=== PATIENT | male | born 1955 | race Caucasian/White ===

== ENCOUNTER 2024-03-08 19:50 | Emergency (ER) | payer OTHER, SELFPAY ==
--- NOTE | ~2024-03-08 | XR_ITS ---
XR chest 1V portable Ordering provider: Bryan Wynne MD History: 68 years Male with . weakness . Comparison: July 04 2018 FINDINGS: MEDIASTINUM: The cardiac silhouette is not enlarged. 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 Stent graft is seen in the aortic arch and descending aorta. Postoperative changes in the mediasti num. LUNGS: No effusions or pneumothorax. Bilateral interstitial changes more on the left side suggestive of pulmonary edema versus pneumonitis . Clinical correlation advised. OTHER: No free air under the diaphragm. 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 CT evaluation advised. Stent graft in the aortic arch and descending aorta. Bilateral interstitial changes suggestive of pneumonitis versus edema. Reviewed, dictated and finalized at location A. ONNEL MANAGER
--- NOTE | ~2024-03-08 | CT_ITS ---
EXAMINATION: CTA chest DATE: 03/09/2024 02:52 INDICATION: Aortic aneurysm. TECHNIQUE: Computed tomographic angiography (CTA) of the chest was performed with 100 mL Omnipaque-35 0 intravenous contrast. Automated exposure control and iterative reconstruction technique were employ ed. The dose-length product was 319.02 mGy-cm. Maximum intensity projection 3D-reconstructions of the aorta and other arteries were constructed by the technologist on a separate workstation. COMPARISON: Chest CT 06/13/2016, chest single view 05/10/2023 FINDINGS: There is mild emphysema. There is septal thickening in the lungs bilaterally. There are cabrera undglass opacities in the lower lobes. No pleural effusion. Cardiomegaly is noted. There are coronary artery calcifications. No pericardial effusion. There are surgical changes of ascending aorta. There is irregularity of the wall of the ascending aorta with 10 mm contrast outpouching. 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 There is a dissection of descen ding thoracic aorta and abdominal aorta with stent graft. 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 There are endoleaks of the aorta at the level of the diaphragm and in the abdominal aorta with contrast opacification of the celiac axis and false lumen of the superior mesenteric artery. There is a 3.3 cm cyst in left kidney. Calcifications in the spleen are consistent with old granulomatous disease. There are gallstones in the gallbladder, which is normal in size. There is bilateral gynecomastia. There is no pulmonary embolus. There is severe c ervical and thoracic spondylosis. IMPRESSION: 1. Diffuse lung disease, likely mild pulmonary edema superimposed on mild emphysema. 2. Surgical changes of the ascending aorta. A 10 mm outpouching of contrast of the ascending aorta ma y be a pseudoaneurysm at an aortotomy site or part of an otherwise thrombosed graft. 3. 8.0 cm dissecting aneurysm of descending thoracic aorta and abdominal aorta with stent graft with endoleaks at the level of the diaphragm and in the abdominal aorta. Given that the celiac axis arises from the false lumen and that the dissection extends into the superior mesenteric artery, it is not clear if these endoleaks are intentional fenestrations. Reviewed, dictated and finalized at location A. AGE GARAGE MANAGER IMPRESSION: 1. Diffuse lung disease, likely mild pulmonary edema superimposed on mild emphy sema. 2. Surgical changes of the ascending aorta. A 10 mm outpouching of contrast of the ascending aorta may be a pseudoaneurysm at an aortotomy site or part of an otherwise thrombosed graft. 3. 8.0 cm dissecting aneurysm of descending thoracic aorta and abdominal aorta with stent graft with endoleaks at the level of the diaphragm and in the abdomi nal aorta. Given that the celiac axis arises from the false lumen and that the dissection extends into the superior mesenteric artery, it is not clear if thes e endoleaks are intentional fenestrations.
--- NOTE | ~2024-03-08 | CT_ITS ---
EXAMINATION: CT brain wo con DATE: 03/09/2024 01:06 INDICATION: Unsteady gait. TECHNIQUE: Computed tomography (CT) of the head was performed without intravenous contrast. The mA wa s adjusted according to patient size. Iterative reconstruction technique was employed. The dose-lengt h product was 681.00 mGy-cm. COMPARISON: None FINDINGS: There is chronic encephalomalacia in the frontal lobes, left worse than right. There are sc attered areas of low attenuation in the cerebral white matter. There is an old infarct in the right t halamus. There is an old infarct in the right cerebellum. There is chronic encephalomalacia in the an teroinferior temporal lobes. There is no intracranial hemorrhage, acute infarction, or abnormal intra cranial mass lesion. There is enlargement of the ventricles. There is mild mucosal thickening in the paranasal sinuses. The mastoid air cells are normal. IMPRESSION: 1. Chronic encephalomalacia involving the frontal and temporal lobes in a distribution typical of tra umatic brain injury. 2. 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 3. Extensive nonspecific cerebral white matter disease, which likely represents chronic small vessel ischemic disease. 4. Enlargement of the ventricles out of proportion to the size of the sulci. Correlate clinically for normal pressure hydrocephalus. Reviewed, dictated and finalized at location A. EMS TECHNICIAN IMPRESSION: 1. Chronic encephalomalacia involving the frontal and temporal lobes in a distr ibution typical of traumatic brain injury. 2. 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 3. Extensive nonspecific cerebral white matter disease, which likely represents chronic small vessel ischemic disease. 4. Enlargement of the ventricles out of proportion to the size of the sulci. Co rrelate clinically for normal pressure hydrocephalus.
[2024-03-08 19:52] VITALS: BP 173/113; PULSE 109; RESP 20; TEMP 36.3; O2SAT 100
[2024-03-08 22:16] VITALS: BP 198/124; PULSE 76; RESP 16; TEMP 36.1; O2SAT 99
[2024-03-08 23:51] VITALS: BP 166/113; PULSE 90; RESP 17; O2SAT 99
[2024-03-08 23:52] VITALS: BP 166/113; PULSE 82; RESP 18; O2SAT 97
[2024-03-09] VITALS (9 sets, daily range): BP systolic 152–184; BP diastolic 93–119; PULSE 67–84; RESP 11–20; O2SAT 95–100
--- NOTE | 2024-03-09 | ECG_ITS ---
Test Date: 2024-03-09 00:20:05 Measurements Intervals Malin Rate: 97 P: 79 VT: 178 QRS: -7 QRSD: 94 T: 66 QT: 360 QTc: 458 Interpretive Statements SINUS RHYTHM WITH FREQUENT SUPRAVENTRICULAR PREMATURE COMPLEXES POSSIBLE LEFT ATRIAL ENLARGEMENT [-0.1mV P WAVE IN V1/V2] ANTEROSEPTAL MYOCARDIAL INFARCTION , OF INDETERMINATE AGE [40+ ms Q WAVE IN V1-V4] No previous ECG available for comparison Electronically Signed On 03-09-2024 14:45:12 MECHANIC CHIEF by Julian Lowe M.D.
[2024-03-09] MEDS: METOPROLOL TARTRATE 50 MG TAB 25 MG PO (00:18)
[2024-03-09 00:25] LABS: Basophils Absolute Auto 0.1 K/mm3 (0.0-0.1); Eosinophils Absolute Auto 0.1 K/mm3 (0-0.3); Eosinophils Percent Auto 1.9 % (0-4.4); Hematocrit 39.9 % (42.0-52.0); Hemoglobin 13.1 g/dL (14.0-18.0); Immature Granulocyte Absolute 0.01 K/mm3 (0.00-0.031); Immature Granulocyte Percent A 0.1 % (0-0.5); Lymphocytes Percent Auto 39.9 % (18.3-44.2); Mean Corpuscular HGB Conc 32.8 g/dl (32-36); Mean Corpuscular Hemoglobin 31.4 pg (26-34); Mean Corpuscular Volume 95.7 fl (80-100); Mean Platelet Volume 9.2 fl (7.4-10.4); Monocytes Absolute Auto 0.8 K/mm3 (0.1-0.6); Monocytes Percent Auto 11.5 % (2.6-8.5); Neutrophils Absolute Auto 3.2 K/mm3 (1.3-6.7); Neutrophils Percent Auto 45.6 % (45.5-73.1); Platelet Count Result 165 k/mm3 (150-375); Red Blood Count 4.17 M/mm3 (4.6-6.20); Red Cell Distribution Width 13.7 % (11.5-14.5)
[2024-03-09 00:34] LABS: Alanine Aminotransferase 18 U/L (6-50); Albumin Level 3.8 g/dL (3.5-5.1); Alkaline Phosphatase 129 U/L (38-126); Anion Gap 3 mmol/L (4-12); Aspartate Amino Transferase 39 U/L (17-59); Bilirubin,Total 0.9 mg/dL (0.2-1.3); Blood Urea Nitrogen 19 mg/dL (9-20); Carbon Dioxide 28 mmol/L (22-30); Chloride 105 mmol/L (98-107); Estimated CRCL calculation 82 ml/min; Estimated Glomerular Filt Rate > 60; Glucose 105 mg/dL (65-110); Potassium 3.9 mmol/L (3.4-5.0); Sodium 136 mmol/L (137-145)
[2024-03-09 00:46] LABS: Troponin I < 0.012 ng/mL (0.000-0.034)
--- NOTE | 2024-03-09 02:20 | PC.NURSE ---
Pt family member states pt was doubling up on his metoprolol and sometimes doing even more than doubling his doses and went through a 90 day supply in around 1 month
[2024-03-09 02:29] LABS: Add Urine Microscopic? YES; Appearance Urine Clear (Clear); Bacteria Urine None Seen /hpf; Bilirubin Urine Negative (Negative); Blood Urine Trace (Negative); Color Urine Yellow (Yellow); Glucose Urine UA Negative (Negative); Ketones Urine Negative (Negative); Leukocyte Esterase Ur Negative LEU/UL (Negative); Nitrate Urine Negative (Negative); Non Pathogenic Casts 0-2; Protein Urine Negative (Negative); RBC Urine 0-2 /hpf (0-2); Specific Grav Ur 1.021 (1.001-1.035); Squamous Epithelial Cell Urine None Seen /hpf (Few); WBC Urine 0-5 /hpf (0-3); pH Urine 5.5 (5.0-9.0)
--- NOTE | 2024-03-09 04:37 | ED_ITS ---
HPI - General Adult General Chief complaint: Recheck/Abnormal Lab/Rx Stated complaint: HTN, lightheaded, dizzy Time Seen by Provider: 03/08/24 23:51 History of Present Illness HPI narrative: Patient is a 68-year-old gentleman who presents emergency department with chief complaint of high blood pressure and feeling off balance. Patient reports that he has been out of his metoprolol for the last several days reports that he notices blood pressures been running high patient denies chest pain denies shortness of breath Related Data Allergies Allergy/AdvReac Type Severity Reaction Status Date / Time No Known Drug Allergies Allergy Unknown Unknown Verified 03/08/24 19:51 Review of Systems Review of Systems: A 10 system review of systems was completed on the patient and is negative except for what is stated in the HPI. Nursing and ancillary documentation was reviewed. [facility] Past Medical History Medical History Aortic arch aneurysm CAD (coronary artery disease) COPD (chronic obstructive pulmonary disease) Hypertension Surgical History Surgical History S/P aortic aneurysm repair Family History Family History Mother Non-Hodgkin lymphoma Social History Social History Social History: in younger years smoked a pack a day. Smoking packs per day: 0.25 Smoking cigarettes per day: 5.0 Years smoked: 42 Smoking pack-years: 10.50 Smoking status: Former smoker Alcohol intake: current Drinks per week: 2 Alcohol use details: beer Substance use: never Exam Narrative: GENERAL: Well-appearing, well-nourished, and in no acute distress. HEAD: Normocephalic, atraumatic. EYES: PERRLA and EOMI. ENT: Nares clear, no rhinorrhea or epistaxis. Mucous membranes moist. NECK: Supple. CHEST: Clear to auscultation. No respiratory distress. HEART: Regular rate and rhythm. No murmur heard. Normal peripheral pulses. ABDOMEN: Soft, nontender, nondistended, normal active bowel sounds. EXTREMITIES: Normal range of motion. No edema. SKIN: Warm, dry, no rash. NEURO: No focal deficits. Alert and oriented x3. PSYCH: Normal mood and affect. Course Vital Signs Vital signs: Vital Signs Temperature 36.3 C L 03/08/24 19:52 Pulse Rate 109 H 03/08/24 19:52 Respiratory Rate 20 03/08/24 19:52 Blood Pressure 173/113 H 03/08/24 19:52 Pulse Oximetry 100 03/08/24 19:52 Oxygen Delivery Room Air 03/08/24 19:52 Temperature 36.1 C L 03/08/24 22:16 Pulse Rate 72 03/09/24 04:46 Respiratory Rate 19 03/09/24 04:46 Blood Pressure 152/96 H 03/09/24 04:46 Pulse Oximetry 97 03/09/24 04:16 Oxygen Delivery Room Air 03/08/24 19:52 Medical Decision Making MDM Narrative Medical decision making narrative: Differential diagnosis includes hypertension, hypertensive urgency, intracranial hemorrhage, thoracic aortic aneurysm Laboratory studies were obtained that showed normal CBC normal CMP troponin was negative Chest x-ray showed a widened mediastinum concerning for aneurysm CT head showed no acute abnormality CTA of the chest showed some enlargement of the aneurysm. The case was discussed with both thoracic and vascular. The images were reviewed and vascular given that he is not having chest pain or abdominal pain feels as though the patient can follow-up as an outpatient. The case was discussed with doctors Sean and Mirna The patient will be ambulated and given a refill for his metoprolol Vital Signs Vital Signs: Vital Signs Temperature 36.3 C L 03/08/24 19:52 Pulse Rate 109 H 03/08/24 19:52 Respiratory Rate 20 03/08/24 19:52 Blood Pressure 173/113 H 03/08/24 19:52 Pulse Oximetry 100 03/08/24 19:52 Oxygen Delivery Room Air 03/08/24 19:52 Temperature 36.1 C L 03/08/24 22:16 Pulse Rate 72 03/09/24 04:46 Respiratory Rate 19 03/09/24 04:46 Blood Pressure 152/96 H 03/09/24 04:46 Pulse Oximetry 97 03/09/24 04:16 Oxygen Delivery Room Air 03/08/24 19:52 Lab Data 03/09/24 00:19 03/09/24 00:19 Labs: Lab Results 03/09/24 03/09/24 Range/Units 00:19 02:21 WBC 7.0 (4.5-10.0) K/mm3 RBC 4.17 L (4.6-6.20) M/mm3 Hgb 13.1 L (14.0-18.0) g/dL Hct 39.9 L (42.0-52.0) % MCV 95.7 (80-100) fl MCH 31.4 (26-34) pg MCHC 32.8 (32-36) g/dl RDW 13.7 (11.5-14.5) % Plt Count 165 (150-375) k/mm3 MPV 9.2 (7.4-10.4) fl Immature Gran % (Auto) 0.1 (0-0.5) % Neut % (Auto) 45.6 (45.5-73.1) % Lymph % (Auto) 39.9 (18.3-44.2) % [place] % (Auto) 11.5 H (2.6-8.5) % Eos % (Auto) 1.9 (0-4.4) % Baso % (Auto) 1.0 (0.2-1.2) % Lymph # (Auto) 2.80 (0.9-3.2) K/mm3 [place] # (Auto) 0.8 H (0.1-0.6) K/mm3 Eos # (Auto) 0.1 (0-0.3) K/mm3 Baso # (Auto) 0.1 (0.0-0.1) K/mm3 Abs Immat Gran (auto) 0.01 (0.00-0.031) K/mm3 Absolute Neuts (auto) 3.2 (1.3-6.7) K/mm3 Absolute Nucleated RBC 0.000 (0.0-0.012) K/mm3 Nucleated RBC % 0.0 (0.0-0.2) % Sodium 136 L (137-145) mmol/L Potassium 3.9 (3.4-5.0) mmol/L Chloride 105 (98-107) mmol/L Carbon Dioxide 28 (22-30) mmol/L Anion Gap 3 L (4-12) mmol/L BUN 19 (9-20) mg/dL Creatinine 0.90 (0.7-1.3) mg/dL Estim Creat Clear Calc 82 ml/min Estimated GFR > 60 (59 - ) Glucose 105 (65-110) mg/dL Calcium 9.0 (8.4-10.2) mg/dL Total Bilirubin 0.9 (0.2-1.3) mg/dL AST 39 (17-59) U/L ALT 18 (6-50) U/L Alkaline Phosphatase 129 H (38-126) U/L Troponin I < 0.012 (0.000-0.034) ng/mL Total Protein 8.0 (6.3-8.2) g/dL Albumin 3.8 (3.5-5.1) g/dL Urine Color Yellow (Yellow) Urine Appearance Clear (Clear) Urine pH 5.5 (5.0-9.0) Ur Specific [place] 1.021 (1.001-1.035) Urine Protein Negative (Negative) mg/dL Urine Glucose (UA) Negative (Negative) mg/dL Urine Ketones Negative (Negative) mg/dL Ur Blood (Man) Trace (Negative) Urine Nitrate Negative (Negative) Urine Bilirubin Negative (Negative) Urine Urobilinogen 1.0 (<2.0) mg/dL Leukocyte Esterase Rfl Negative (Negative) EDDIE/UL Urine RBC 0-2 (0-2) /hpf Urine WBC 0-5 (0-3) /hpf Ur Squamous Epith Cells None seen (Few) /hpf Urine Bacteria None seen /hpf Urine Casts 0-2 Discharge Plan Discharge Clinical Impression: Hypertension, Aneurysm, thoracic aortic Patient Disposition: Home, Self-Care Condition: Stable Instructions: Antibiotic Form, Hypertension (ED) Additional Instructions: Please follow-up with your vascular surgeon. If you develop severe chest pain severe abdominal pain and is recommended that he seek immediate evaluation. Prescriptions: New metoprolol tartrate 25 mg tablet 25 mg PO BID Qty: 60 0RF No Action metoprolol tartrate 50 mg tablet 50 mg PO DAILY Qty: 30 0RF Rx Instructions: Pt needs appt prior to more refills. Follow-up/Referrals: Destin George MD [Primary Care Provider] - Time of Disposition: 06:28
--- NOTE | 2024-03-09 07:08 | PC.NURSE ---
Pt roadtested. Pt ambulated with steady gait but said he felt a bit weak, however pt says he feels like he is safe to leave.
== END 2024-03-09 07:23 | disposition home or self-care (01) ==
PROVIDERS: Emergency Provider Emergency Medicine; PCP Family Medicine Adolescent Medicine
DX: I10 Essential (primary) hypertension (principal); I71.20 Thoracic aortic aneurysm, without rupture, unspecified; I25.10 Atherosclerotic heart disease of native coronary artery without angina pectoris; J44.9 Chronic obstructive pulmonary disease, unspecified; Z87.891 Personal history of nicotine dependence
CPT/HCPCS: 36415; 70450; 71045; 71275; 80053; 81001; 84484; 85025; 93005; 99284; A9270; Q9967

== ENCOUNTER 2024-06-10 15:43 | Outpatient (CLI) | payer OTHER, SELFPAY ==
[2024-06-10 16:27] LABS: Basophils Absolute Auto 0.1 K/mm3 (0.0-0.1); Basophils Percent Auto 1.2 % (0.2-1.2); Eosinophils Percent Auto 0.6 % (0-4.4); Hematocrit 43.4 % (42.0-52.0); Hemoglobin 14.2 g/dL (14.0-18.0); Immature Granulocyte Absolute 0.01 K/mm3 (0.00-0.031); Immature Granulocyte Percent A 0.1 % (0-0.5); Immature Platelet Fraction Pct 3.3 % (0.9-11.2); Lymphocytes Absolute Auto 2.49 K/mm3 (0.9-3.2); Lymphocytes Percent Auto 36.3 % (18.3-44.2); Mean Corpuscular HGB Conc 32.7 g/dl (32-36); Mean Corpuscular Hemoglobin 31.5 pg (26-34); Mean Corpuscular Volume 96.2 fl (80-100); Mean Platelet Volume 9.4 fl (7.4-10.4); Monocytes Absolute Auto 0.7 K/mm3 (0.1-0.6); Monocytes Percent Auto 10.3 % (2.6-8.5); Neutrophils Absolute Auto 3.5 K/mm3 (1.3-6.7); Neutrophils Percent Auto 51.5 % (45.5-73.1); Platelet Count Result 123 k/mm3 (150-375); Red Blood Count 4.51 M/mm3 (4.6-6.20); Red Cell Distribution Width 14.2 % (11.5-14.5); White Blood Count 6.9 K/mm3 (4.5-10.0)
--- OUTSIDE RECORDS SUMMARY | 2024-06-10 18:22 | XMS_ITS | Data Portability ---
Author Organization [facility] [address] [place] [id number] Care Team Providers Care Clerk Analyst Name Role Phone RIAN BANKS Primary Care Provider [phone] Assessment Encounter Date Assessment Date Assessment LastModified by Organization Details LastModified Time 03/11/2024 03/11/2024 Blood pressure is not controlled continue with the metoprolol add nifedipine ER 30 mg daily. Obtain ER record. also obtain records from his previous primary care healthy lifestyle care instructions follow up 2 weeks. [email or web address] Not available 04/12/2024 21:30:04 Plan of Treatment Reminders Order Date Submit Date Provider Last Modified By Organization Details Last Modified Time Details Appointments ANY 15 2024 02:15P Rani Banks MD Not available Not available Not available ANY 15 2024 01:15P Rani Banks MD Not available Not available Not available Lab None recorded. Referral None recorded. Procedures None recorded. Surgeries None recorded. Imaging None recorded. Medication Orders nifedipin e ER 30 mg tablet,ex tended release 2023 024 [email or web address] [id number] [address], [place], [id number], 03/11/2024 14:55:00 Patient TargetsNo targets recorded. Patient Instructions Encounter Date Encounter Id Patient Instructions Last Modified By Organization Details Last Modified Time 03/11/2024 [id number] A healthy lifestyle: care instructions Not available 03/11/2024 14:55:00 Reason for Referral None Reported. Problems Name Problem SNOMED Code Status Onset Date Resolution Date Notes Provider Name and Address Organization Details Recorded Time Essential hypertension 85383443 Active 2023 LULI Lee, [facility] 4 12:23:08 Problem Notes None recorded. Procedures Surgical History Date Name Laterality Status Provider Name and Address Organization Details Recorded Time 06/15/19 17 aneurysmectomy of aortic arch with anastomosis completed Hellen Miller [facility] 03/11/2024 10:30:17 Imaging Results None recorded. Procedure Notes None recorded. Medical Equipment None Reported. Allergies Allergen ID Allergen Name Allergen Category Reaction Reaction Severity Criticality Documentation Date Start Date Code Code System Note Provider Name and Address Organization Details Recorded Time 497972 chlorthal idone medicatio n other Not available low 06/10/20242018 2409 RxNorm Hypon atrem ia when in traum a hospi dayne Not Available Not Available Not Available Medications Name Sig Start Date Stop Date Status Note LastModified by Organization Details LastModified Time nifedipine ER 30 mg tablet,exten ded release Take 1 tablet every day by oral route. active Not Available Not Available No t Available metoprolol tartrate 25 mg tablet Take 1 tablet twice a day by oral route. 025 active Not Available Not Available Not Avai lable Vitals Date Recorded Body height Body mass index (BMI) Body weight Heart rate Oxygen saturation Oxygen saturation in Arterial blood by Pulse oximetry Systolic blood pressure Diastolic blood pressure Provider Name and Address Organization Details Last Updated DateTime 4 187.96 cm 25.4 kg/m2 31327.8 5 g 75 /min 97 % 97 % 165 mm[Hg] 100 mm[Hg] Hellen Miller [facility] 4 10:27:11 Date Recorded Heart rate Oxygen saturation Oxygen saturation in Arterial blood by Pulse oximetry Systolic blood pressure Diastolic blood pressure Provider Name and Address Organization Details Last Updated DateTime 4 59 /min 95 % 95 % 164 mm[Hg] 106 mm[Hg] Giuliana Sarabia MA [facility] 4 12:07:18 Date Recorded Body height Body mass index (BMI) Body weight Heart rate Oxygen saturation Oxygen saturation in Arterial blood by Pulse oximetry Systolic blood pressure Diastolic blood pressure Provider Name and Address Organization Details Last Updated DateTime 5 187.96 cm 24.4 kg/m2 35848.5 5 g 76 /min 96 % 96 % 112 mm[Hg] 70 mm[Hg] Hellen Miller, [facility] 15:05:31 Social History Question Answer Notes LastModified by Organizat ion Details LastModified Time Tobacco Smoking Status Current Every Day Smoker Hellensnow Miller MA null, [place] - [email or web address] 03/11/2024 10:28:25 Do You Have An Advance Directive? No Information n ot available 03/11/2024 Are You Blind Or Do You Have Difficulty Seeing? No Information n ot available 03/11/2024 In The 14 Days Before Symptom Onset, Have You Had Close Contact With A Laboratory-confirm ed COVID-19 While That Case Was Ill? No Information n ot available 03/11/2024 In The 14 Days Before Symptom Onset, Have You Had Close Contact With A Person Who Is Under Investigation For COVID-19 While That Person Was Ill? No Information not available 03/11/2024 Have You Been To An Area Known To Be High Risk For COVID-19? No Information not available 03/11/2024 Are You Deaf Or Do You Have Serious Difficulty Hearing? No Information not available 03/11/2024 What Type Of Diet Are You Following? REGULAR Information n ot available 03/11/2024 Are There Any Guns Present In Your Home? No Information not available 03/11/2024 What Was The Date Of Your Most Recent Tobacco Screening? 06/10/2024 Information not available 06/10/2024 What Is Your Current Pack Years? 10-19packyea rs Information not available 03/11/2024 Do You Use Your Seat Belt Or Car Seat Routinely? Yes Information not available 03/11/2024 Do You Have Smoke And Carbon Monoxide Detectors In Your Home? Yes Information not available 03/11/2024 How Much Tobacco Do You Smoke? 0.5 PPD Information not available 03/11/2024 Do You Use Any Illicit Or Recreational Drugs? No Information not available 03/11/2024 Do You Use Sunscreen Routinely? No Information not available 03/11/2024 Has Tobacco Cessation Counseling Been Provided? Yes Information not available 03/11/2024 On What Date Was Tobacco Cessation Counseling Provided? 06/10/2024 Information not available 06/10/2024 Do You Or Have You Ever Used Any Other Forms Of Tobacco Or Nicotine? No Information not available 03/11/2024 Sex: Unknown Functional Status Question Answer Note LastModified by Organization D etails LastModified Time Are you able to care for yourself? Yes Information n ot available 03/11/2024 Mental Status None recorded. Family History Nothing Reported. Medical History Condition Response High Blood Pressure Y Heart Failure Y Immunizations Vaccine Type Date Status Note Provider Miguel e and Address Organization Details Recorded Time Influenza, high-dose, quadrivalent, PF 12/13/2022 completed LULI Boyle, [place] - [facility] 06/10/2024 12:59:25 COVID-19 vaccine, vector-nr, rS-Ad26, PF, 0.5 mL 07/11/2020 completed LULI Boyle, [place] - [facility] 06/10/2024 12:59:25 Influenza, split virus, trivalent, PF 03/19/2014 completed LULI Boyle, [place] - [facility] 06/10/2024 12:59:25 Influenza, split virus, quadrivalent, PF 12/27/2017 completed LULI Boyle, [place] - [facility] 06/10/2024 12:59:25 Tdap 06/10/2024 completed LULI Lee, [place] - [facility] 06/10/2024 16:09:18 Past Encounters Encounter ID Performer Location Encounter Start Date Encounter Closed Date Diagnosis/Indication Diagnosis SNOMED-CT Code Diagnosis ICD10 Code Diagnosis Note [id number] Rian Banks MD [facility] [employer] [address] [place] [id number] 03/11/2024 10:16:01 03/11/2024 12:20:02 Body mass index 25-29 - overweight 134600616 Z68.25 Overweight 046727113 E66 .3 Essential hypertension 11912917 I10 Aneurysm o f aortic arch 448273666 I71.22 Coronary atherosclerosis 631536088 I25.10 Chronic ob structive pulmonary disease 76745406 J44.9 Cyst of kidney 351441556 N28.1 [id number] Lalita Villarreal MA [facility] [employer] [address] [place] [address] 06/10/2024 14:50:40 06/10/2024 16:07:51 Body mass index 20-24 - normal 527953085 Z68.24 Overweight 388141482 E66 .3 Administra tion of diphtheria, pertussis, and tetanus vaccine 069155596 Z23 Essential hypertension 42855176 I10 Screening for malignant neoplasm of colon 952432124 Z12.11 Health Concerns Section Related Observation LastModified by Organization Detai ls LastModified Time None Recorded Concern Status LastModified by Organization Details LastModified Time None Recorded Advance Directives Directive N: Payers Encounter Date Sequence Insurance Name Policy Number Policy Ramirez Covered Member ID Ramirez Member ID Guarantor Name 03/11/2024 1 [employer] - DUAL ELIGIBLE - GOLD PLUS INTE[employer]ATED (MEDICARE - HMO) Stephen Garrett [id number] Stephen Garrett Notes Date Note Type Note Provider Name and Address Organization Details Recorded Time 03/11/2024 text/html patient to establish care he was in the emergency room recently in [facility] because of elevated blood pressure apparently the patient has a history of hypertension had run out of his metoprolol for a week or so prior he also has a history of the aortic arch aneurysm that has been repaired what sounds like possibly a distal aneurysm in his aorta that has been repaired CAD COPD hypertension a kidney cyst. Medications metoprolol allergies none surgeries he has had aneurysm repair family history mother non-Hodgkin's lymphoma. Father had mesothelioma. Single half a pack a day smoker no drugs . alcohol moderate alcohol. He is not sure about colonoscopy or Cologuard had a flu shot unsure of COVID shingles or pneumonia Rian Banks MD Attn: Accounting,[address] [facility], [place], [address], [facility] 04/12/2024 21:30:33
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
--- OUTSIDE RECORDS SUMMARY | 2024-06-10 18:23 | XMS_ITS | CONTINUITY OF CARE DOCUMENT ---
Author Name rowan donahue Address Unknown Organization [facility] Address [id number] [place] [address] [address] [place] [address] Phone [phone] Care Team Providers Care Furniture Associate Name Role Phone Nick Ni MD Unavailable [phone] OLIVIA HERNANDEZ DO Unavailable [phone] INSURANCE PROVIDERS Payer name Policy type / Coverage type [place] red republican ID [facility] Medicaid [id number]
--- OUTSIDE RECORDS SUMMARY | 2024-06-10 18:23 | XMS_ITS | Patient Health Summary ---
Author Organization [facility] Address [address] [place] [address] Care Team Providers Care Biodiesel Production Associate Name Role Phone Unavailable Primary Care Provider Unavailabl e Note from [facility],non-owned Affiliates and Associated Physician Practices is amultiple site organization consisting of ambulatory clinics and hospital sitesin [place], [place]. This disclosure is being madepursuant to the Care Everywhere program and may not contain all information available regarding this patient. Last updated 17.[facility] Allergies No known active allergies Medications * Be aware that medications may not be up to date on this document. Alwaysverify current medications with the patient. * atorvastatin (LIPITOR) 40 MG tablet(Started 12/26/2017) Take 40 mg by mouth * carvedilol (COREG) 25 MG tablet(Started 12/26/2017) Take 25 mg by mouth * famotidine (PEPCID) 20 MG tablet(Started 07/12/2016) Take 20 mg by mouth * folic acid (FOLVITE) 1 MG tablet(Started 07/12/2016) Take 1 mg by mouth * oxyCODONE, immediate release, (ROXICODONE) 5 MG tablet(Started 04/06/2018) Take 1 tablet by mouth every 6 hours as needed * docusate sodium (COLACE) 100 MG capsule(Started 04/07/2018) Take 1 capsule by mouth once daily * senna 17.2 MG(Started 04/07/2018) Take 17.2 mg by mouth once daily Active Problems Problem Noted Date Diagnosed Date [...] CDT Respiratory Rate 17 04/06/2018 12:47 PM [employer]PERINTENDENT [employer]AL Oxygen Saturation 96% 04/06/2018 12:47 PM [employer] Inhaled Oxygen Concentration - - Weight 100.2 kg (221 lb) 06/14/2018 1:04 PM CDT Height 190.5 cm (6' 3 ) 06/14/2018 1:04 PM CDT Body Mass Index 27.62 06/14/2018 1:04 PM CDT Procedures * CT ANGIO BRAIN(Performed 06/14/2018) Performed for SDH (subdural hematoma) (HCC) * CREATININE BLOOD - POCT (IP) [facility](Performed 06/14/2018) Performed for SDH (subdural hematoma) (HCC) * CARDIAC EKG ORDER(Performed 05/05/2018) * LAB RESULTS ORDER(Performed 04/18/2018) * APHERESIS/TRANSFUSION ORDER(Performed 04/13/2018) * CARDIAC PROCEDURE ORDER(Performed 04/09/2018) * BASIC METABOLIC PANEL (CALCIUM TOTAL)(Performed 04/05/2018) * PHOSPHORUS BLOOD(Performed 04/05/2018) * MAGNESIUM BLOOD(Performed 04/05/2018) * CBC W AUTO DIFFERENTIAL(Performed 04/05/2018) * BASIC METABOLIC PANEL (CALCIUM TOTAL)(Performed 04/05/2018) * PHOSPHORUS BLOOD(Performed 04/05/2018) * MAGNESIUM BLOOD(Performed 04/05/2018) * CBC W AUTO DIFFERENTIAL(Performed 04/05/2018) * BASIC METABOLIC PANEL (CALCIUM TOTAL)(Performed 04/04/2018) * BASIC METABOLIC PANEL (CALCIUM TOTAL)(Performed 04/04/2018) * BASIC METABOLIC PANEL (CALCIUM TOTAL)(Performed 04/03/2018) * PHOSPHORUS BLOOD(Performed 04/03/2018) * MAGNESIUM BLOOD(Performed 04/03/2018) * CBC W AUTO DIFFERENTIAL(Performed 04/03/2018) * BASIC METABOLIC PANEL (CALCIUM TOTAL)(Performed 04/03/2018) * BASIC METABOLIC PANEL (CALCIUM TOTAL)(Performed 04/03/2018) * BASIC METABOLIC PANEL (CALCIUM TOTAL)(Performed 04/03/2018) * BASIC METABOLIC PANEL (CALCIUM TOTAL)(Performed 04/03/2018) * CT HEAD WWO CONTRAST(Performed 04/03/2018) Performed for Traumatic hemorrhage of cerebrum with loss of consciousness, unspecified laterality, initial encounter (HCC) * BASIC METABOLIC PANEL (CALCIUM TOTAL)(Performed 04/03/2018) * PHOSPHORUS BLOOD(Performed 04/03/2018) * MAGNESIUM BLOOD(Performed 04/03/2018) * CBC W AUTO DIFFERENTIAL(Performed 04/03/2018) * BASIC METABOLIC PANEL (CALCIUM TOTAL)(Performed 04/02/2018) * BASIC METABOLIC PANEL (CALCIUM TOTAL)(Performed 04/02/2018) * CT ANGIO BRAIN AND NECK(Performed 04/02/2018) Performed for Traumatic hemorrhage of cerebrum with loss of consciousness, unspecified laterality, initial encounter (HCC) * BASIC METABOLIC PANEL (CALCIUM TOTAL)(Performed 04/02/2018) * BASIC METABOLIC PANEL (CALCIUM TOTAL)(Performed 04/01/2018) * PHOSPHORUS BLOOD(Performed 04/01/2018) * MAGNESIUM BLOOD(Performed 04/01/2018) * CBC W AUTO DIFFERENTIAL(Performed 04/01/2018) * BASIC METABOLIC PANEL (CALCIUM TOTAL)(Performed 04/01/2018) * BASIC METABOLIC PANEL (CALCIUM TOTAL)(Performed 04/01/2018) * BASIC METABOLIC PANEL (CALCIUM TOTAL)(Performed 04/01/2018) * BASIC METABOLIC PANEL (CALCIUM TOTAL)(Performed 03/31/2018) * PHOSPHORUS BLOOD(Performed 03/31/2018) * MAGNESIUM BLOOD(Performed 03/31/2018) * CBC W AUTO DIFFERENTIAL(Performed 03/31/2018) * OSMOLALITY URINE(Performed 03/31/2018) * SODIUM URINE RANDOM(Performed 03/31/2018) * BASIC METABOLIC PANEL (CALCIUM TOTAL)(Performed 03/31/2018) * HEPATIC FUNCTION PANEL(Performed 03/31/2018) * BASIC METABOLIC PANEL (CALCIUM TOTAL)(Performed 03/31/2018) * BASIC METABOLIC PANEL (CALCIUM TOTAL)(Performed 03/31/2018) * CT HEAD WO CONTRAST(Performed 03/31/2018) Performed for SDH (subdural hematoma) (HCC) * BASIC METABOLIC PANEL (CALCIUM TOTAL)(Performed 03/31/2018) * PHOSPHORUS BLOOD(Performed 03/31/2018) * MAGNESIUM BLOOD(Performed 03/31/2018) * CBC W AUTO DIFFERENTIAL(Performed 03/31/2018) * BASIC METABOLIC PANEL (CALCIUM TOTAL)(Performed 03/30/2018) * IR PICC LINE INSERT(Performed 03/30/2018) Performed for Traumatic hemorrhage of cerebrum with loss of consciousness, unspecified laterality, initial encounter ([facility]) * TEG PLATELET MAPPING(Performed 03/30/2018) * BASIC METABOLIC PANEL (CALCIUM TOTAL)(Performed 03/30/2018) * BASIC METABOLIC PANEL (CALCIUM TOTAL)(Performed 03/30/2018) * XR CHEST 1VW PORTABLE(Performed 03/30/2018) Performed for Contusion of right lung, initial encounter * CT HEAD WO CONTRAST(Performed 03/30/2018) Performed for Intraparenchymal hematoma of brain due to trauma with loss of consciousness, unspecified laterality, initial encounter ([facility]) * BASIC METABOLIC PANEL (CALCIUM TOTAL)(Performed 03/29/2018) * PHOSPHORUS BLOOD(Performed 03/29/2018) * MAGNESIUM BLOOD(Performed 03/29/2018) * CBC W AUTO DIFFERENTIAL(Performed 03/29/2018) * BASIC METABOLIC PANEL (CALCIUM TOTAL)(Performed 03/29/2018) * BASIC METABOLIC PANEL (CALCIUM TOTAL)(Performed 03/29/2018) * TEG CITRATED KAOLIN (CK)(Performed 03/29/2018) * BASIC METABOLIC PANEL (CALCIUM TOTAL)(Performed 03/29/2018) * CT ANGIO BRAIN(Performed 03/29/2018) Performed for Trauma * XR CHEST 1VW PORTABLE(Performed 03/29/2018) Performed for Trauma * TRANSFUSE PLATELET PHERESIS UNIT(S)(Performed 03/29/2018) * TRANSFUSE PLATELET PHERESIS UNIT(S)(Performed 03/29/2018) * EKG 12-LEAD(Performed 03/29/2018) Performed for Trauma * DIFFERENTIAL MANUAL(Performed 03/29/2018) * PHOSPHORUS BLOOD(Performed 03/29/2018) * MAGNESIUM BLOOD(Performed 03/29/2018) * BASIC METABOLIC PANEL (CALCIUM TOTAL)(Performed 03/29/2018) * CBC W AUTO DIFFERENTIAL(Performed 03/29/2018) * TEG PLATELET MAPPING(Performed 03/29/2018) * CT CHEST ABDOMEN PELVIS W CONT(Performed 03/28/2018) Performed for Trauma * CT LUMBAR SPINE WO CONTRAST(Performed 03/28/2018) Performed for Trauma * CT THORACIC SPINE WO CONTRAST(Performed 03/28/2018) Performed for Trauma * CT CERVICAL SPINE WO CONTRAST(Performed 03/28/2018) Performed for Trauma * CT HEAD WO CONTRAST(Performed 03/28/2018) Performed for Trauma * URINE DRUG SCREEN IMMUNOASSAY(Performed 03/28/2018) * PREPARE PLATELET PHERESIS UNIT(S)(Performed 03/28/2018) * PREPARE PLATELET PHERESIS UNIT(S)(Performed 03/28/2018) * PREPARE RBC LEUKOREDUCED UNIT(Performed 03/28/2018) * TYPE + SCREEN PANEL(Performed 03/28/2018) * DIFFERENTIAL MANUAL(Performed 03/28/2018) * ALCOHOL ETHYL BLOOD(Performed 03/28/2018) * PT-INR [facility](Performed 03/28/2018) * PTT [facility](Performed 03/28/2018) * COMPREHENSIVE METABOLIC PANEL(Performed 03/28/2018) * CBC W AUTO DIFFERENTIAL(Performed 03/28/2018) * XR CHEST 1VW PORTABLE(Performed 03/28/2018) Performed for Trauma Results * CT ANGIO BRAIN (06/14/2018 12:29 PM CDT) Only the most recent of2 resultswithin the time period is included. Anatomical Region Laterality Modality Head Computed Tomogra phy 06/14/2018 1:03 PM CDT Impressions 06/14/2018 1:29 PM CDT IMPRESSION: Compared to prior scan performed 04/03/2018: -Interval resolution of acute intracranial hemorrhage and mass effect that was present on the prior study. Development of regions encephalomalacia in the inferior frontal lobes, left temporal lobe, and right cerebellar hemisphere. -CTV demonstrates development of numerous collateral vessels in primarily suboccipital region, which have dense contrast filling. There appears to be preserved faint contrast filling of the dural venous sinuses, including of portion of right transverse and sigmoid dural venous sinuses and imaged right IJV that appeared thrombosed on prior scan. This report was electronically signed by IRMA BEARD on 06/14/2018 1:29 PM . Narrative 06/14/2018 1:29 PM CDT EXAMINATION: 1. CT of the head without contrast 2. CT venography of the head with contrast HISTORY: TBI follow up SAH/SDH multiple contusions; please perform CT VENOGRAM brain TECHNIQUE: CT of the head was performed without contrast according to standard protocol. Then CT venography of the head was obtained after the uneventful administration of 100 mL Isovue-370 intravenous contrast. Three dimensional postprocessing was performed by the technologist and sent to the workstation for review. COMPARISON: CT head without and with contrast 04/03/2018, 4:38 AM FINDINGS: Noncontrast CT head: No acute intracranial hemorrhage. Regions of transcortical encephalomalacia at the inferior aspect of the frontal lobes (left more extensive than right), along left temporal convexity, and along the right cerebellar convexity.. No mass effect, or midline shift. Cerebral volume loss. The bony calvarium appears intact. Mild mucosal thickening of frontal recesses, bilateral ethmoid air cells, bilateral maxillary antra. Small opacities in the external auditory canals are nonspecific most likely cerumen. Partial right mastoid effusion.. CTV HEAD: Suboptimal timing, with dense contrast in arteries, and faint contrast in venous structures. Within this limitation: In the anterior circulation, bilateral ICA cavernous segments have calcified plaque with no stenosis. Bilateral intracranial ICAs (and bilateral P-comm), the MCAs, and the ACAs have generalized mild fusiform dilatation, otherwise appear appear unremarkable. In the posterior circulation, the intracranial vertebrals, basilar artery, and the solar sales associate appear unremarkable. Normal variant origin of right LEAD SHIPPER. Dense contrast at margin of torcula, left transverse sigmoid dural venous sinus, with dense contrast filling of the left IJV, and of numerous collateral vessels in the suboccipital region bilaterally, extending to perform margin of imaged spinal canal. Except for this, there is limited evaluation of the dural venous sinuses and major cerebral veins, which have preserved faint contrast filling/enhancement. Procedure Note Irma Beard MD - 06/14/2018 EXAMINATION: 1. CT of the head without contrast 2. CT venography of the head with contrast HISTORY: TBI follow up SAH/SDH multiple contusions; please perform CT VENOGRAM brain TECHNIQUE: CT of the head was performed without contrast according to standard protocol. Then CT venography of the head was obtained after the uneventful administration of 100 mL Isovue-370 intravenous contrast.Three dimensional postprocessing was performed by the technologist and sent to the workstation for review. COMPARISON: CT head without and with contrast 04/03/2018, 4:38 AM FINDINGS: Noncontrast CT head: No acute intracranial hemorrhage. Regions of transcortical encephalomalacia at the inferior aspect of the frontallobes (left more extensive than right), along left temporal convexity, andalong the right cerebellar convexity.. No mass effect, or midline shift. Cerebral volume loss. The bony calvarium appears intact. Mild mucosal thickening of frontal recesses, bilateral ethmoid air cells, bilateral maxillary antra. Small opacities in the external auditory canals are nonspecific most likely cerumen. Partial right mastoid effusion.. CTV HEAD: Suboptimal timing, with dense contrast in arteries, and faint contrastin venous structures. Within this limitation: In the anterior circulation, bilateral ICA cavernous segments have calcified plaque with no stenosis. Bilateral intracranial ICAs (and bilateral P-comm), the MCAs, and the ACAs have generalized mild fusiform dilatation, otherwise appear appear unremarkable. In the posterior circulation, the intracranial vertebrals, basilarartery, and the solar sales associate appear unremarkable. Normal variant origin of right LEAD SHIPPER. Dense contrast at margin of torcula, left transverse sigmoid duralvenous sinus, with dense contrast filling of the left IJV, and of numerous collateral vessels in the suboccipital region bilaterally, extending to perform margin of imaged spinal canal. Except for this, there is limited evaluation of the dural venous sinuses and major cerebral veins, which have preserved faint contrast filling/enhancement. IMPRESSION: Compared to prior scan performed 04/03/2018: -Interval resolution of acute intracranial hemorrhage and mass effectthat was present on the prior study. Development of regions encephalomalaciain the inferior frontal lobes, left temporal lobe, and right cerebellar hemisphere. -CTV demonstrates development of numerous collateral vessels inprimarily suboccipital region, which have dense contrast filling. There appears to be preserved faint contrast filling of the dural venous sinuses,including of portion of right transverse and sigmoid dural venous sinuses andimaged right IJV that appeared thrombosed on prior scan. This report was electronically signed by IRMA BEARD on 06/14/2018 1:29 PM . Mikal Trejo MD CT ORDERABLES * CREATININE BLOOD - POCT (IP) [facility] (06/14/2018 12:19 PM CDT) Creatinine POCT 1.19 0.3 - 1.3 mg/dL [facility] POCT TESTING eGFR POCT 60 60 ml/min [facility] POCT TESTING Blood BLOOD SPECIMEN / Unknown 06/14/2018 12:19 PM CDT Mikal Trejo MD LAB - POINT OF C ARE ORDERABLES [facility] POCT TESTING [address] [place] [address] * CARDIAC EKG ORDER (05/05/2018 6:51 PM SUPERINTENDENT TERMINAL) Narrative 05/05/2018 6:51 PM [employer] Ordered by an unspecified provider. Scanned Document CARDIAC SERVICES ORD ERABLES * LAB RESULTS ORDER (04/18/2018 11:32 AM SUPERINTENDENT TERMINAL) Narrative 04/18/2018 11:32 AM [employer]AL Ordered by an unspecified provider. Scanned Document LAB - THERAPEUTIC DR SALCIDO MONITORING ORDERABLES * APHERESIS/TRANSFUSION ORDER (04/13/2018 1:41 PM SUPERINTENDENT TERMINAL) Narrative 04/13/2018 1:41 PM [employer]ENT [employer]MINAL Ordered by an unspecified provider. Scanned Document NURSING - VITAL SIGN S AND ASSESSMENT * CARDIAC PROCEDURE ORDER (04/09/2018 4:26 PM SUPERINTENDENT TERMINAL) Narrative 04/09/2018 4:26 PM [employer]PERINTENDENT [employer]MINAL Ordered by an unspecified provider. Scanned Document CARDIAC SERVICES ORD ERABLES * (ABNORMAL) CBC W AUTO DIFFERENTIAL (04/05/2018 11:59 PM SUPERINTENDENT TERMINAL) Only the most recent of10 resultswithin the time period is included. WBC 10.3 3.5 - 10.5 10 3/uL 04/06/2018 12:21 AM [facility] RBC 4.43 4.30 - 5.70 10 6/uL 04/06/2018 12:21 AM [facility] Hemoglobin 14.3 13.5 - 17.5 g/dL 04/06/2018 12:21 AM [facility] Hematocrit 42.1 39.0 - 50.0 % 04/06/2018 12:21 AM [facility] MCV 95.0 81.0 - 97.0 fL 04/06/2018 12:21 AM [facility] MCH 32.3 28.0 - 34.0 pg 04/06/2018 12:21 AM [facility] MCHC 34.0 32.0 - 36.0 g/dL 04/06/2018 12:21 AM [facility] Platelet Count 185 150 - 400 10 3/uL 04/06/2018 12:21 AM [facility] RDW-SD 47.0 36.0 - 50.0 fL 04/06/2018 12:21 AM [facility] RDW-CV 13.2 11.2 - 14.8 % 04/06/2018 12:21 AM [facility] MPV 9.9 9.3 - 12.8 fL 04/06/2018 12:21 AM [facility] nRBC Absolute 0.00 0 10 3/uL 04/06/2018 12:21 AM [facility] nRBC Auto 0.0 0 /100 WBC 04/06/2018 12:21 AM [facility] Neutrophils % 57.2 35.0 - 70.0 % 04/06/2018 12:21 AM [facility] Lymphocytes % 27.9 19.7 - 55.1 % 04/06/2018 12:21 AM [facility] Monocytes % 12.9 3.0 - 15.0 % 04/06/2018 12:21 AM [facility] Eosinophils % 1.1 0.0 - 6.0 % 04/06/2018 12:21 AM [facility] Basophil % 0.4 0.0 - 1.5 % 04/06/2018 12:21 AM [facility] Neutrophils Absolute 5.9 1.6 - 7.0 10 3/uL 04/06/2018 12:21 AM [facility] Lymphocyte Absolute 2.9 0.8 - 2.9 10 3/uL 04/06/2018 12:21 AM [facility] Monocytes Absolute 1.33(H) 0.14 - 0.66 10 3/uL 04/06/2018 12:21 AM [facility] Eosinophils Absolute 0.11 0.00 - 0.45 10 3/uL 04/06/2018 12:21 AM [facility] Basophils Absolute 0.04 0.00 - 0.06 10 3/uL 04/06/2018 12:21 AM [facility] Immature Granulocytes % 0.5 0.0 - 1.0 % 04/06/2018 12:21 AM [facility] Blood BLOOD SPECIMEN / Unknown Lab Venipuncture / Unknown 04/05/2018 11:59 PM [employer]PERINTENDENT [employer]MINAL 04/06/2018 12:10 AM [facility] Jimy Raza MD LAB - HEMATOLOGY OR DERABLES Performing Organization Address City/State/[facility] Co de Phone Number [facility] [address] [phone] * (ABNORMAL) BASIC METABOLIC PANEL (CALCIUM TOTAL) (04/05/2018 11:59 PM [facility]) Only the most recent of30 resultswithin the time period is included. BUN 31(H) 7 - 26 mg/dL 04/06/2018 12:35 AM [facility] Creatinine 1.1 0.6 - 1.2 mg/dL 04/06/2018 12:35 AM [facility] Sodium 139 136 - 145 mmol/L 04/06/2018 12:35 AM [facility] Potassium 3.9 3.5 - 4.5 mmol/L 04/06/2018 12:35 AM [facility] Chloride 108(H) 98 - 107 mmol/L 04/06/2018 12:35 AM [facility] CO2 18(L) 22 - 29 mmol/L 04/06/2018 12:35 AM [facility] Glucose 100 70 - 115 mg/dL 04/06/2018 12:35 AM [facility] Calcium 8.8 8.4 - 10.2 mg/dL 04/06/2018 12:35 AM [facility] Anion Gap 17 8 - 18 04/06/2018 12:35 AM [facility] BUN/Creatinine Ratio 28(H) 7 - 23 04/06/2018 12:35 AM [facility] Osmolality Calculated 295 270 - 300 mOsm/kg 04/06/2018 12:35 AM [facility] eGFR >60 >60 mL/min/1.7 3 m2 04/06/2018 12:35 AM [facility] Blood BLOOD SPECIMEN / Unknown Lab Venipuncture / Unknown 04/05/2018 11:59 PM [employer]INTEND[employer]MINAL 04/06/2018 12:10 AM [employer] Jose Silverman APRN-HUSSEIN LAB - CHEMISTRY ORDERABLES Performing Organization Address [facility]/ZIP Co de Phone Number [address] [phone] * PHOSPHORUS BLOOD (04/05/2018 11:59 PM [employer]INTENDENT [employer]MINAL) Only the most recent of9 resultswithin the time period is included. Phosphorus 3.4 2.3 - 4.7 mg/dL 04/06/2018 12:32 AM [facility] Blood BLOOD SPECIMEN / Unknown Lab Venipuncture / Unknown 04/05/2018 11:59 PM SUPERINTENDENT TERMINAL 04/06/2018 12:10 AM [employer] Jimy Raza MD LAB - CHEMISTRY ORD ERABLES Performing Organization Address City/[facility]/ZIP Co de Phone Number [address] [phone] * MAGNESIUM BLOOD (04/05/2018 11:59 PM SUPERINTENDENT TERMINAL) Only the most recent of9 resultswithin the time period is included. Magnesium 2.5 1.6 - 2.6 mg/dL 04/06/2018 12:32 AM [employer]INTENDENT [employer]MIN[employer] [facility] Blood BLOOD SPECIMEN / Unknown Lab Venipuncture / Unknown 04/05/2018 11:59 PM SUPERINTENDENT TERMINAL 04/06/2018 12:10 AM [employer] Jimy Raza MD LAB - CHEMISTRY ORD ERABLES [address] [phone] * CT HEAD WWO CONTRAST (04/03/2018 4:54 AM SUPERINTENDENT TERMINAL) Anatomical Region Laterality Modality Head Computed Tomogra phy 04/03/2018 6:17 AM [employer] Impressions 04/03/2018 10:35 AM [employer] IMPRESSION: 1. Partial thrombosis of the distal right transverse sinus. Partial to complete thrombosis of the right sigmoid sinus. Near complete thrombosis of the right jugular bulb and proximal internal jugular vein. As compared to the prior study, there is increased contrast in the proximal right transverse sinus which may be due to technique and less likely interval resolution. 2. Redemonstration of multiple bilateral large frontal and temporal hemorrhagic contusions. Associated vasogenic edema and mild effacement of cerebral sulci and basilar cisterns is grossly unchanged. Subdural hemorrhage and subarachnoid hemorrhage is grossly unchanged from prior exam. I, Dr. ELKE MERRITT have personally reviewed and interpreted this examination/study. This report was electronically signed by ELKE MERRITT on 04/03/2018 10:35 AM . Narrative 04/03/2018 10:35 AM [employer] EXAMINATION: Computed tomography (CT) of the head without and with contrast HISTORY: History of dural venous thrombosis. TECHNIQUE: CT of the head was performed prior to and following the uneventful administration of contrast according to standard protocol. CT venogram was performed with multiplanar MPR image reconstruction. 100 mL of Isovue-370 was administered intravenously. FINDINGS: Comparison is made with the prior CT angiogram brain and neck from 04/02/2018. Hemorrhagic contusions in the frontal and temporal lobes bilaterally are grossly unchanged in size compared to prior examination. Surrounding edema with effacement of adjacent sulci is grossly unchanged. Small volume subdural hemorrhage along the interhemispheric fissure and tentorium is grossly unchanged from prior exam. Small volume subarachnoid hemorrhage in bilateral temporal sulci is grossly unchanged from prior exam. There is a small volume intraventricular blood product. There is no significant interval change in the midline shift of approximately 2 to 3 mm. There is mild ventriculomegaly. The ventricles are grossly unchanged in size and configuration compared to prior exam. The basilar cisterns are mildly effaced, grossly unchanged. A right mastoid effusion is unchanged. A right temporal bone fracture is unchanged. There is partial opacification of the distal right transverse sinus with a likely filling defect dorsally. This defect extends into the sigmoid sinus which is partially occluded proximally and completely occluded at its midportion with good contrast opacification distally. There is thrombosis of the right jugular bulb which extend into the proximal jugular vein with minimal residual flow. The right transverse sinus, right sigmoid sinus and the right jugular foramen are patent. The superior sagittal sinus demonstrates is are patent. Internal cerebral veins are patent. Procedure Note Elke Merritt MD - 04/03/2018 EXAMINATION: Computed tomography (CT) of the head without and withcontrast HISTORY: History of dural venous thrombosis. TECHNIQUE: CT of the head was performed prior to and following the uneventful administration of contrast according to standard protocol. CT venogram was performed with multiplanar MPR image reconstruction. 100 mL of Isovue-370 was administered intravenously. FINDINGS: Comparison is made with the prior CT angiogram brain and neck from 04/02/2018. Hemorrhagic contusions in the frontal and temporal lobes bilaterally are grossly unchanged in size compared to prior examination. Surroundingedema with effacement of adjacent sulci is grossly unchanged. Small volume subdural hemorrhage along the interhemispheric fissure and tentorium is grossly unchanged from prior exam. Small volumesubarachnoid hemorrhage in bilateral temporal sulci is grossly unchanged from prior exam. There is a small volume intraventricular blood product. There is no significant interval change in the midline shift of approximately 2 to 3 mm. There is mild ventriculomegaly. The ventricles are grossly unchanged in size and configuration compared to prior exam. The basilar cisterns are mildly effaced, grossly unchanged. A right mastoid effusion is unchanged. A right temporal bone fracture is unchanged. There is partial opacification of the distal right transverse sinus witha likely filling defect dorsally. This defect extends into the sigmoidsinus which is partially occluded proximally and completely occluded at its midportion with good contrast opacification distally. There isthrombosis of the right jugular bulb which extend into the proximal jugular veinwith minimal residual flow. The right transverse sinus, right sigmoid sinus and the right jugular foramen are patent. The superior sagittal sinus demonstrates is are patent. Internal cerebral veins are patent. IMPRESSION: 1. Partial thrombosis of the distal right transverse sinus. Partial to complete thrombosis of the right sigmoid sinus. Near complete thrombosis of the right jugular bulb and proximal internal jugular vein. Ascompared to the prior study, there is increased contrast in the proximal right transverse sinus which may be due to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 abdomen and pelvis for further details. IMPRESSION: 1. Multiple hemorrhagic contusions in the bilateral frontal and the temporal lobes as detailed above. Scattered subarachnoid hemorrhage in bilateral cerebral sulci and the sylvian fissures. A small subdural hematoma in the high left frontal region near to vertex with mildregional mass effect without evidence of internal herniation. 2. Nondisplaced fracture of the right temporal bone extending into the right mastoid, associate with mild pneumocephalus. 3. No evidence of acute fracture in the cervical, thoracic, or lumbar spine. However, the cervical spine is degraded by motion artifacts. Multilevel degenerative disc and joint disease in the spine as detailed above. 4. A severe aortic dissection, incompletely imaged. Please refer to the report of the concurrent CT of the chest, abdomen and pelvis for further details. Dr. Joe has discussed the preliminary findings with Dr. Yates at 11:29PM on yesterday. This report was electronically signed by ROQUE GUPTA M.D. on 03/29/2018 7:53 AM . Destin Narayanan MD CT ORDERABLES * CT THORACIC SPINE WO CONTRAST (03/28/2018 10:43 PM [employer]) Anatomical Region Laterality Modality Spine Computed Tomogra phy 03/29/2018 7:21 AM [employer] Impressions 03/29/2018 7:53 AM [employer] IMPRESSION: 1. Multiple hemorrhagic contusions in the bilateral frontal and the temporal lobes as detailed above. Scattered subarachnoid hemorrhage in bilateral cerebral sulci and the sylvian fissures. A small subdural hematoma in the high left frontal region near to vertex with mild regional mass effect without evidence of internal herniation. 2. Nondisplaced fracture of the right temporal bone extending into the right mastoid, associate with mild pneumocephalus. 3. No evidence of acute fracture in the cervical, thoracic, or lumbar spine. However, the cervical spine is degraded by motion artifacts. Multilevel degenerative disc and joint disease in the spine as detailed above. 4. A severe aortic dissection, incompletely imaged. Please refer to the report of the concurrent CT of the chest, abdomen and pelvis for further details. Dr. Joe has discussed the preliminary findings with Dr. Yates at 11:29 PM on yesterday. This report was electronically signed by ROQUE GUPTA M.D. on 03/29/2018 7:53 AM . Narrative 03/29/2018 7:53 AM [employer] EXAMINATION: 1. Computed tomography (CT) of the head without contrast 2. CT of the cervical spine without contrast 3. CT of the thoracic spine without contrast 4. CT of the lumbar spine without contrast HISTORY: Trauma. Intracranial hemorrhage. TECHNIQUE: CT of the head and cervical spine were performed without contrast according to standard protocol. Reformatted axial, sagittal, and coronal images of the thoracic and lumbar spine were obtained by the technologist from a concurrently performed body CT and sent to the workstation for review. FINDINGS: No prior study is available for comparison at the time of this dictation. Head: Moderate severe multiple hemorrhagic contusions are noted in the bilateral frontal, and anterior and inferior temporal lobes, with multiple foci of intraparenchymal hemorrhage and surrounding edema. The largest focus of intraparenchymal hemorrhage measures approximately 3.5 cm in diameter in the left frontal lobe. A few intraparenchymal hematoma are in the subcortical white matter, which may represent diffuse axonal injury. Scattered subarachnoid hemorrhage is noted in bilateral cerebral sulci and the sylvian fissures. A small subdural hematoma is noted in the high left frontal region near the vertex with mild regional mass effect. The ventricles are mildly dilated due to cerebral volume loss. Mild periventricular hypoattenuation may be related to chronic small vessel ischemic disease. The basilar cisterns are patent. There is minimal, 2 to 3 mm leftward midline shift. Other than mild paranasal sinus disease, the visualized portions of the orbits, paranasal sinuses appear normal. There is a nondisplaced fracture originating in the right temporal bone (series 5 image 19, series 5 image 11, series 6 image 47) which extends to the right mastoid air cells with associated hemorrhage and middle ear effusion. The jugular foramen and carotid canal appear intact. The ossicular chain appears intact. There is a small amount of pneumocephalus in the adjacent sigmoid sinus. Cervical spine: The study is degraded by motion artifacts which can obscure subtle abnormalities. There is a 3 mm anterolisthesis of C7 on T1, likely degenerative in etiology. Vertebral bodies are normal in height without evidence of acute fracture. Other than moderate middle atlantoaxial joint osteoarthritis, the craniocervical junction appears normal. There is moderate to severe multilevel degenerative disc disease. There is mild to moderate central canal stenosis at C5-6 and C6-C7 levels. There are varying degrees of moderate to severe multilevel facet osteoarthritis. There are varying degrees of moderate to severe multilevel uncovertebral joint osteoarthritis with the same degree of neural foraminal stenosis at these levels. There is atherosclerotic calcification of the carotid bifurcations. Thoracic spine: There is mild levoscoliosis in the upper thoracic spine. Vertebral bodies are normal in height without evidence of acute fracture. The intervertebral discs appear normal. No central canal stenosis is seen. The facets appear normal. No neural foraminal stenosis is seen. A large aortic dissection is partially imaged. Please refer to the report of a concurrent CT of the chest, abdomen and pelvis for further details. Multiple collateral venous structures are noted in the upper thorax. Lumbar spine: There is moderate dextroscoliosis in the lumbar spine, likely due to advanced multilevel degenerative disc and joint disease. Mild retrolisthesis of L5 on S1 is noted. There is diffuse osteopenia. Vertebral bodies are normal in height without evidence of acute fracture. There is moderate to severe degenerative disc disease with vacuum phenomenon at all levels. There is mild to moderate multilevel central canal stenosis due to combination of the degenerative disc and joint disease. There are varying degrees of moderate to severe facet osteoarthritis with the same degree of neural foraminal stenosis at these levels. The aortic dissection extends inferiorly to the aortic bifurcation, the medial mesenteric artery and the right common and external carotid arteries. Please refer to the report of a concurrent CT of the abdomen and pelvis for further details. Procedure Note Roque Gupta MD - 03/29/2018 EXAMINATION: 1. Computed tomography (CT) of the head without contrast 2. CT of the cervical spine without contrast 3. CT of the thoracic spine without contrast 4. CT of the lumbar spine without contrast HISTORY: Trauma. Intracranial hemorrhage. TECHNIQUE: CT of the head and cervical spine were performed without contrast according to standard protocol. Reformatted axial, sagittal,and coronal images of the thoracic and lumbar spine were obtained by the technologist from a concurrently performed body CT and sent to the workstation for review. FINDINGS: No prior study is available for comparison at the time of this dictation. Head: Moderate severe multiple hemorrhagic contusions are noted in thebilateral frontal, and anterior and inferior temporal lobes, with multiple foci of intraparenchymal hemorrhage and surrounding edema. The largest focus of intraparenchymal hemorrhage measures approximately 3.5 cm in diameter in the left frontal lobe. A few intraparenchymal hematoma are in the subcortical white matter, which may represent diffuse axonal injury. Scattered subarachnoid hemorrhage is noted in bilateral cerebral sulciand the sylvian fissures. A small subdural hematoma is noted in the highleft frontal region near the vertex with mild regional mass effect. The ventricles are mildly dilated due to cerebral volume loss. Mild periventricular hypoattenuation may be related to chronic small vessel ischemic disease. The basilar cisterns are patent. There is minimal, 2to 3 mm leftward midline shift. Other than mild paranasal sinus disease, the visualized portions of the orbits, paranasal sinuses appear normal. There is a nondisplaced fracture originating in the right temporal bone (series 5 image 19, series 5 image 11, series 6 image 47) which extendsto the right mastoid air cells with associated hemorrhage and middle ear effusion. The jugular foramen and carotid canal appear intact. The ossicular chain appears intact. There is a small amount ofpneumocephalus in the adjacent sigmoid sinus. Cervical spine: The study is degraded by motion artifacts which can obscure subtle abnormalities. There is a 3 mm anterolisthesis of C7 on T1, likely degenerative in etiology. Vertebral bodies are normal in height without evidence ofacute fracture. Other than moderate middle atlantoaxial joint osteoarthritis, the craniocervical junction appears normal. There is moderate to severe multilevel degenerative disc disease. There is mild to moderate central canal stenosis at C5-6 and C6-C7 levels. There are varying degrees of moderate to severe multilevel facet osteoarthritis. There are varying degrees of moderate to severe multilevel uncovertebral joint osteoarthritis with the same degree of neural foraminal stenosis atthese levels. There is atherosclerotic calcification of the carotid bifurcations. Thoracic spine: There is mild levoscoliosis in the upper thoracic spine. Vertebralbodies are normal in height without evidence of acute fracture. The intervertebral discs appear normal. No central canal stenosis is seen.The facets appear normal. No neural foraminal stenosis is seen. A large aortic dissection is partially imaged. Please refer to thereport of a concurrent CT of the chest, abdomen and pelvis for further details. Multiple collateral venous structures are noted in the upper thorax. Lumbar spine: There is moderate dextroscoliosis in the lumbar spine, likely due to advanced multilevel degenerative disc and joint disease. Mild retrolisthesis of L5 on S1 is noted. There is diffuse osteopenia. Vertebral bodies are normal in height without evidence of acutefracture. There is moderate to severe degenerative disc disease with vacuum phenomenon at all levels. There is mild to moderate multilevel central canal stenosis due to combination of the degenerative disc and joint disease. There are varying degrees of moderate to severe facet osteoarthritis with the same degree of neural foraminal stenosis atthese levels. The aortic dissection extends inferiorly to the aortic bifurcation, the medial mesenteric artery and the right common and external carotid arteries. Please refer to the report of a concurrent CT of the abdomen and pelvis for further details. IMPRESSION: 1. Multiple hemorrhagic contusions in the bilateral frontal and the temporal lobes as detailed above. Scattered subarachnoid hemorrhage in bilateral cerebral sulci and the sylvian fissures. A small subdural hematoma in the high left frontal region near to vertex with mildregional mass effect without evidence of internal herniation. 2. Nondisplaced fracture of the right temporal bone extending into the right mastoid, associate with mild pneumocephalus. 3. No evidence of acute fracture in the cervical, thoracic, or lumbar spine. However, the cervical spine is degraded by motion artifacts. Multilevel degenerative disc and joint disease in the spine as detailed above. 4. A severe aortic dissection, incompletely imaged. Please refer to the report of the concurrent CT of the chest, abdomen and pelvis for further details. Dr. Joe has discussed the preliminary findings with Dr. Yates at 11:29PM on yesterday. This report was electronically signed by ROQUE GUPTA M.D. on 03/29/2018 7:53 AM . Destin Narayanan MD CT ORDERABLES * CT CERVICAL SPINE WO CONTRAST (03/28/2018 10:43 PM [employer]) Anatomical Region Laterality Modality Spine Computed Tomogra phy 03/29/2018 7:21 AM [employer] Impressions 03/29/2018 7:53 AM [employer] IMPRESSION: 1. Multiple hemorrhagic contusions in the bilateral frontal and the temporal lobes as detailed above. Scattered subarachnoid hemorrhage in bilateral cerebral sulci and the sylvian fissures. A small subdural hematoma in the high left frontal region near to vertex with mild regional mass effect without evidence of internal herniation. 2. Nondisplaced fracture of the right temporal bone extending into the right mastoid, associate with mild pneumocephalus. 3. No evidence of acute fracture in the cervical, thoracic, or lumbar spine. However, the cervical spine is degraded by motion artifacts. Multilevel degenerative disc and joint disease in the spine as detailed above. 4. A severe aortic dissection, incompletely imaged. Please refer to the report of the concurrent CT of the chest, abdomen and pelvis for further details. Dr. Joe has discussed the preliminary findings with Dr. Yates at 11:29 PM on yesterday. This report was electronically signed by ROQUE GUPTA M.D. on 03/29/2018 7:53 AM . Narrative 03/29/2018 7:53 AM [employer] EXAMINATION: 1. Computed tomography (CT) of the head without contrast 2. CT of the cervical spine without contrast 3. CT of the thoracic spine without contrast 4. CT of the lumbar spine without contrast HISTORY: Trauma. Intracranial hemorrhage. TECHNIQUE: CT of the head and cervical spine were performed without contrast according to standard protocol. Reformatted axial, sagittal, and coronal images of the thoracic and lumbar spine were obtained by the technologist from a concurrently performed body CT and sent to the workstation for review. FINDINGS: No prior study is available for comparison at the time of this dictation. Head: Moderate severe multiple hemorrhagic contusions are noted in the bilateral frontal, and anterior and inferior temporal lobes, with multiple foci of intraparenchymal hemorrhage and surrounding edema. The largest focus of intraparenchymal hemorrhage measures approximately 3.5 cm in diameter in the left frontal lobe. A few intraparenchymal hematoma are in the subcortical white matter, which may represent diffuse axonal injury. Scattered subarachnoid hemorrhage is noted in bilateral cerebral sulci and the sylvian fissures. A small subdural hematoma is noted in the high left frontal region near the vertex with mild regional mass effect. The ventricles are mildly dilated due to cerebral volume loss. Mild periventricular hypoattenuation may be related to chronic small vessel ischemic disease. The basilar cisterns are patent. There is minimal, 2 to 3 mm leftward midline shift. Other than mild paranasal sinus disease, the visualized portions of the orbits, paranasal sinuses appear normal. There is a nondisplaced fracture originating in the right temporal bone (series 5 image 19, series 5 image 11, series 6 image 47) which extends to the right mastoid air cells with associated hemorrhage and middle ear effusion. The jugular foramen and carotid canal appear intact. The ossicular chain appears intact. There is a small amount of pneumocephalus in the adjacent sigmoid sinus. Cervical spine: The study is degraded by motion artifacts which can obscure subtle abnormalities. There is a 3 mm anterolisthesis of C7 on T1, likely degenerative in etiology. Vertebral bodies are normal in height without evidence of acute fracture. Other than moderate middle atlantoaxial joint osteoarthritis, the craniocervical junction appears normal. There is moderate to severe multilevel degenerative disc disease. There is mild to moderate central canal stenosis at C5-6 and C6-C7 levels. There are varying degrees of moderate to severe multilevel facet osteoarthritis. There are varying degrees of moderate to severe multilevel uncovertebral joint osteoarthritis with the same degree of neural foraminal stenosis at these levels. There is atherosclerotic calcification of the carotid bifurcations. Thoracic spine: There is mild levoscoliosis in the upper thoracic spine. Vertebral bodies are normal in height without evidence of acute fracture. The intervertebral discs appear normal. No central canal stenosis is seen. The facets appear normal. No neural foraminal stenosis is seen. A large aortic dissection is partially imaged. Please refer to the report of a concurrent CT of the chest, abdomen and pelvis for further details. Multiple collateral venous structures are noted in the upper thorax. Lumbar spine: There is moderate dextroscoliosis in the lumbar spine, likely due to advanced multilevel degenerative disc and joint disease. Mild retrolisthesis of L5 on S1 is noted. There is diffuse osteopenia. Vertebral bodies are normal in height without evidence of acute fracture. There is moderate to severe degenerative disc disease with vacuum phenomenon at all levels. There is mild to moderate multilevel central canal stenosis due to combination of the degenerative disc and joint disease. There are varying degrees of moderate to severe facet osteoarthritis with the same degree of neural foraminal stenosis at these levels. The aortic dissection extends inferiorly to the aortic bifurcation, the medial mesenteric artery and the right common and external carotid arteries. Please refer to the report of a concurrent CT of the abdomen and pelvis for further details. Procedure Note Roque Gupta MD - 03/29/2018 EXAMINATION: 1. Computed tomography (CT) of the head without contrast 2. CT of the cervical spine without contrast 3. CT of the thoracic spine without contrast 4. CT of the lumbar spine without contrast HISTORY: Trauma. Intracranial hemorrhage. TECHNIQUE: CT of the head and cervical spine were performed without contrast according to standard protocol. Reformatted axial, sagittal,and coronal images of the thoracic and lumbar spine were obtained by the technologist from a concurrently performed body CT and sent to the workstation for review. FINDINGS: No prior study is available for comparison at the time of this dictation. Head: Moderate severe multiple hemorrhagic contusions are noted in thebilateral frontal, and anterior and inferior temporal lobes, with multiple foci of intraparenchymal hemorrhage and surrounding edema. The largest focus of intraparenchymal hemorrhage measures approximately 3.5 cm in diameter in the left frontal lobe. A few intraparenchymal hematoma are in the subcortical white matter, which may represent diffuse axonal injury. Scattered subarachnoid hemorrhage is noted in bilateral cerebral sulciand the sylvian fissures. A small subdural hematoma is noted in the highleft frontal region near the vertex with mild regional mass effect. The ventricles are mildly dilated due to cerebral volume loss. Mild periventricular hypoattenuation may be related to chronic small vessel ischemic disease. The basilar cisterns are patent. There is minimal, 2to 3 mm leftward midline shift. Other than mild paranasal sinus disease, the visualized portions of the orbits, paranasal sinuses appear normal. There is a nondisplaced fracture originating in the right temporal bone (series 5 image 19, series 5 image 11, series 6 image 47) which extendsto the right mastoid air cells with associated hemorrhage and middle ear effusion. The jugular foramen and carotid canal appear intact. The ossicular chain appears intact. There is a small amount ofpneumocephalus in the adjacent sigmoid sinus. Cervical spine: The study is degraded by motion artifacts which can obscure subtle abnormalities. There is a 3 mm anterolisthesis of C7 on T1, likely degenerative in etiology. Vertebral bodies are normal in height without evidence ofacute fracture. Other than moderate middle atlantoaxial joint osteoarthritis, the craniocervical junction appears normal. There is moderate to severe multilevel degenerative disc disease. There is mild to moderate central canal stenosis at C5-6 and C6-C7 levels. There are varying degrees of moderate to severe multilevel facet osteoarthritis. There are varying degrees of moderate to severe multilevel uncovertebral joint osteoarthritis with the same degree of neural foraminal stenosis atthese levels. There is atherosclerotic calcification of the carotid bifurcations. Thoracic spine: There is mild levoscoliosis in the upper thoracic spine. Vertebralbodies are normal in height without evidence of acute fracture. The intervertebral discs appear normal. No central canal stenosis is seen.The facets appear normal. No neural foraminal stenosis is seen. A large aortic dissection is partially imaged. Please refer to thereport of a concurrent CT of the chest, abdomen and pelvis for further details. Multiple collateral venous structures are noted in the upper thorax. Lumbar spine: There is moderate dextroscoliosis in the lumbar spine, likely due to advanced multilevel degenerative disc and joint disease. Mild retrolisthesis of L5 on S1 is noted. There is diffuse osteopenia. Vertebral bodies are normal in height without evidence of acutefracture. There is moderate to severe degenerative disc disease with vacuum phenomenon at all levels. There is mild to moderate multilevel central canal stenosis due to combination of the degenerative disc and joint disease. There are varying degrees of moderate to severe facet osteoarthritis with the same degree of neural foraminal stenosis atthese levels. The aortic dissection extends inferiorly to the aortic bifurcation, the medial mesenteric artery and the right common and external carotid arteries. Please refer to the report of a concurrent CT of the abdomen and pelvis for further details. IMPRESSION: 1. Multiple hemorrhagic contusions in the bilateral frontal and the temporal lobes as detailed above. Scattered subarachnoid hemorrhage in bilateral cerebral sulci and the sylvian fissures. A small subdural hematoma in the high left frontal region near to vertex with mildregional mass effect without evidence of internal herniation. 2. Nondisplaced fracture of the right temporal bone extending into the right mastoid, associate with mild pneumocephalus. 3. No evidence of acute fracture in the cervical, thoracic, or lumbar spine. However, the cervical spine is degraded by motion artifacts. Multilevel degenerative disc and joint disease in the spine as detailed above. 4. A severe aortic dissection, incompletely imaged. Please refer to the report of the concurrent CT of the chest, abdomen and pelvis for further details. Dr. Joe has discussed the preliminary findings with Dr. Yates at 11:29PM on yesterday. This report was electronically signed by ROQUE GUPTA M.D. on 03/29/2018 7:53 AM . Destin Narayanan MD CT ORDERABLES * DRUG SCREEN TOX URINE PANEL (03/28/2018 9:41 PM [employer]PER[employer]) Amphetamines Screen Urine Negative Negative: < 1000 ng/mL 03/28/2018 10:03 PM [facility] Barbiturates Screen Urine Negative Negative: < 200 ng/mL 03/28/2018 10:03 PM [facility] Benzodiazepine Screen Urine Negative Negative: < 200 ng/mL 03/28/2018 10:03 PM [employer] [facility] Opiates Urine Negative Negative: < 300 ng/mL 03/28/2018 10:03 PM [facility] Cocaine Metabolites Urine Negative Negative: < 300 ng/mL 03/28/2018 10:03 PM [facility] Phencyclidine Screen Urine Negative Negative: < 25 ng/ml 03/28/2018 10:03 PM [facility] Cannabinoids Screen Urine Negative Negative: <50 ng/mL 03/28/2018 10:03 PM [facility] Methadone Screen Urine Negative Negative: < 300 ng/mL 03/28/2018 10:03 PM [facility] Urine URINE / Unknown Collection / Unknown 03/28/2018 9:41 PM [employer] 03/28/2018 9:41 PM [employer] Narrative [facility] - 03/28/2018 10:03 PM [employer] The Urine Toxicology Screening Panel does not screen for Propoxyphene, Meprobamate, Carisoprodol, Trazodone, orsb-ght-nynmhgt medications and/or volatiles (Acetone, Isopropanol, Methanol or Ethylene Glycol). Ethanol, Salicylate, Acetaminophen, Tricyclic Antidepressants and several therapeutic drugs may be individually assayed in serum or plasma specimen. Toxicology testing by the [facility] is an aid to medical diagnosis and treatment of patients. No documented chain of custody was maintained. Results are intended to be used for clinical purposes only. Destin Narayanan MD LAB - URINE C HEMISTRY ORDERABLES [facility] [address] [place] [address] * PTT [facility] (03/28/2018 7:11 PM [employer]ENT [employer]) APTT 27.6 23.0 - 38.4 Seconds 03/28/2018 7:35 PM [facility] Comment: Suggested therapeutic range for full dose I.V. heparin therapy for venous thromboembolism is 66.0-91.0 seconds. Blood BLOOD SPECIMEN / Unknown Venipuncture / Unknown 03/28/2018 7:11 PM [employer] 03/28/2018 7:19 PM [employer] Destin Narayanan MD LAB - COAGULA TION ORDERABLES Performing Organization Address [facility] Co de Phone Number [address] [phone] * PT-INR [facility] (03/28/2018 7:11 PM [employer]INT[employer]ENT [employer]) PT 13.5 12.1 - 14.8 Seconds 03/28/2018 7:35 PM [employer] [facility] INR 1.1 See Comment 03/28/2018 7:35 PM [employer] [facility] Comment: The suggested therapeutic range for standard coumadin (warfarin) therapy is an INR of 2.0-3.0. For high-risk patients (Mechanical Mitral Valve Prosthesis, etc.), the suggested prophylactic therapeutic range is an INR of 2.5-3.5. Blood BLOOD SPECIMEN / Unknown Venipuncture / Unknown 03/28/2018 7:11 PM [employer] 03/28/2018 7:19 PM [employer] Destin Narayanan MD LAB - COAGULA TION ORDERABLES Performing Organization Address [facility] Co de Phone Number [address] [phone] * PREPARE (CROSSMATCH) RBC UNIT(S), 4 Units (03/28/2018 7:11 PM [employer]INTENDENT [employer]) Unit Description LR Red Cells [facility] BLOOD BANK LAB Unit ABO O [facility] BLOOD [facility] LAB Unit POS [facility] B[facility]OD [facility] Product Code RL1 [facility] BLO OD BANK LAB Unit Donor # [id number] [facility] BLOOD [facility] LAB Unit Status released [facility] MediaspectrumO D BANK LAB Product Number [id number] [facility] B LOOD BANK LAB Blood Type Barcode 5100 [facility] BLOOD [facility] Unit Description LR Red Cells [facility] B[facility]OD [facility] Unit ABO O [facility] BLOOD [facility] Unit Rh POS [facility] BLOOD [facility] Product Code RL1 [facility] BLO OD BANK LAB Unit Donor # [id number] [facility] BLOOD [facility] LAB Unit Status released [facility] BLOO D BANK LAB Product Number [id number] [facility] B LOOD BANK LAB Blood Type Barcode 5100 [facility] BLOOD [facility] Unit Description LR Red Cells [facility] BLOOD [facility] Unit ABO O [facility] BLOOD [facility] Unit Rh POS [facility] BLOOD [facility] Product Code RL1 [facility] BLO OD BANK LAB Unit Donor # [id number] [facility] BLOOD [facility] Unit Status released [facility] BLOO D BANK LAB Product Number [id number] [facility] B LOOD BANK LAB Blood Type Barcode 5100 [facility] BLOOD [facility] Unit Description LR Red Cells [facility] BLOOD [facility] LAB Unit ABO O [facility] BLOOD [facility] LAB Unit Rh POS [facility] BLOOD [facility] Product Code RL1 [facility] BLO OD BANK LAB Unit Donor # [id number] [facility] BLOOD [facility] LAB Unit Status released [facility] BLOO D BANK LAB Product Number [id number] [facility] B LOOD BANK LAB Blood Type Barcode 5100 [facility] BLOOD [facility]ANK LAB Blood Bank BLOOD SPECIMEN / Unknown 03/28/2018 7:11 PM [employer] 03/28/2018 7:23 PM [employer] Karl Caldera MD LAB - BLOOD BANK ORD ERABLES [facility] B[facility]OD [facility] LAB [address] [place] [address] * PREPARE PLATELET PHERESIS UNIT(S), 1 Units (03/28/2018 7:11 PM [employer]PERINTENDENT [employer]MINAL) Only the most recent of2 resultswithin the time period is included. Unit Description PL Pheres LR IRR [facility] BLOOD [facility]ANK LAB Unit ABO B [facility] BLOOD [facility] Unit Rh POS [facility] BLO[facility] Product Code P7 [facility] BLO OD BANK LAB Unit Donor # [id number] [facility] BLOOD [facility] LAB Unit Status transfused [facility] BLO OD BANK LAB Product Number [id number] [facility] B LOOD BANK LAB Blood Type Barcode 7300 [facility] BLOOD BANK LAB Blood Bank BLOOD SPECIMEN / Unknown 03/28/2018 7:11 PM [employer] 03/28/2018 7:23 PM [employer] Jimy Raza MD LAB - BLOOD BANK OR DERABLES [facility] B[facility]OD [facility] LAB [address] [place] [address] * TYPE + SCREEN PANEL (03/28/2018 7:11 PM SUPERINTENDENT TERMINAL) Antibody Screen NEG 8 8:05 PM [facility] BLOOD B[facility] LAB ABO Rh A NEG 03/28/2018 8:05 PM [facility] BLOOD [facility] LAB Blood Bank BLOOD SPECIMEN / Unknown Venipuncture / Unknown 03/28/2018 7:11 PM [employer] 03/28/2018 7:22 PM [employer]ENT [employer]AL Destin Narayanan MD LAB - BLOOD B ANK ORDERABLES [facility] BLOOD [facility] LAB [address] * (ABNORMAL) COMPREHENSIVE METABOLIC PANEL (03/28/2018 7:11 PM SUPERINTENDENT TERMINAL) [facility] BUN 12 7 - 26 mg/dL 03/28/2018 7:44 PM [facility] Creatinine 0.9 0.6 - 1.2 mg/dL 03/28/2018 7:44 PM [facility] Sodium 139 136 - 145 mmol/L 03/28/2018 7:44 PM [facility] Potassium 3.1(L) 3.5 - 4.5 mmol/L 03/28/2018 7:44 PM [facility] Chloride 104 98 - 107 mmol/L 03/28/2018 7:44 PM [facility] CO2 22 22 - 29 mmol/L 03/28/2018 7:44 PM [facility] Glucose 95 70 - 115 mg/dL 03/28/2018 7:44 PM [facility] Calcium 9.0 8.4 - 10.2 mg/dL 03/28/2018 7:44 PM [facility] Protein Total 7.2 6.0 - 8.3 g/dL 03/28/2018 7:44 PM [facility] Albumin 3.1(L) 3.4 - 5.0 g/dL 03/28/2018 7:44 PM [facility] Bilirubin Total 0.5 0.2 - 1.2 mg/dL 03/28/2018 7:44 PM [facility] Alkaline Phosphatase 84 40 - 150 Units/L 03/28/2018 7:44 PM [facility] ALT 22 0 - 55 Units/L 03/28/2018 7:44 PM [facility] AST 33 5 - 34 Units/L 03/28/2018 7:44 PM [facility] Anion Gap 16 8 - 18 03/28/2018 7:44 PM [facility] BUN/Creatinine Ratio 13 7 - 23 03/28/2018 7:44 PM [facility] Osmolality Calculated 288 270 - 300 mOsm/kg 03/28/2018 7:44 PM [facility] Albumin/Globulin Ratio 0.8(L) 1.1 - 2.3 03/28/2018 7:44 PM [facility] eGFR >60 >60 mL/min/1.7 3 m2 03/28/2018 7:44 PM [facility] Blood BLOOD SPECIMEN / Unknown Venipuncture / Unknown 03/28/2018 7:11 PM [employer] 03/28/2018 7:19 PM [employer]ENT [employer]AL Destin Narayanan MD LAB - LPN PER DIEM RY ORDERABLES Performing Organization Address [facility] Co de Phone Number [address] [phone] * (ABNORMAL) ALCOHOL ETHYL BLOOD (03/28/2018 7:11 PM [employer]PERINTENDENT [employer]MINAL) Ethanol (mg/dL) 16(H) None Detected mg/dL 03/28/2018 7:44 PM [facility] Comment: Ethanol in the patient's blood will contribute to the osmolar gap. Ethanol's contribution to the osmolar gap can be estimated by dividing the concentration of ethanol in mg/dL by 4.6. Blood BLOOD SPECIMEN / Unknown Venipuncture / Unknown 03/28/2018 7:11 PM [employer]ENDENT [employer] 03/28/2018 7:19 PM [employer]ENT [employer]AL Destin Narayanan MD LAB - LPN PER DIEM RY ORDERABLES Performing Organization Address [facility]/State/ZIP Co de Phone Number [address] [phone]
--- OUTSIDE RECORDS SUMMARY | 2024-06-10 18:23 | XMS_ITS | Encounter Summary ---
Author Organization [facility] Address [address] [place] [address] Care Team Providers Care [employer] Supervisor Name Role Phone Sander Church MD Unavailable [phone] Destin George MD Unavailable + Garry Rhodes MD Primary Care Provider + [phone] Stephen Zaidi MD Primary Care Provider + [phone] Destin George MD Primary Care Prov ider Rian Banks MD Primary Care Provider + [phone] Encounter Details Date Type Department Care Team (Late st Contact Info) Description 07/28/2020 Telephone [facility] [address] [facility] [place] [place] [id number] Chica Garcia, RT Social History Tobacco Use Types Packs/Day Years Used Date Smoking Tobacco: Every Day Cigarettes 0.5 46.2 Started: 1976 Smokeless Tobacco: Never Alcohol Use Standard Drinks/Week Comments Yes 2 (1 standard drink = 0.6 oz pur e alcohol) Sex and Gender Information Value Date Recorded Sex Assigned at Not on file Legal Sex Male 4:16 AM CDT Gender Identity Not on file Sexual Orientation Straight 04/17/2019 1: 10 PM [employer] documented as of this encounter Plan of Treatment Not on file documented as of this encounter Visit Diagnoses Not on filedocumented in this encounter Care Teams [employer] Supervisor Relationship Specialty Start Date End Date Garry Rhodes MD [address] [place] [address] PCP - General 07/03/20 01/26/21 Stephen Zaidi MD [address] [place] [address] PCP - General 01/27/21 02/09/22 Destin George MD [address] [place] [phone] PCP - General Family Medicine 02/10/22 11/26/23 Rian Banks MD [address] [place] [address] PCP - General Internal Medicine 11/27/23 Sander Church MD [facility] 03/11/19 Destin George MD [address] [place] [address] Referring Physician Family Medicine 06/25/20 documented as of this encounter
--- OUTSIDE RECORDS SUMMARY | 2024-06-10 18:23 | XMS_ITS | Clinical Summary ---
Author Organization [facility] Address [address] [place] [address] Care Team Providers Care Crushing Mill Operator Name Role Phone Sander Church MD Unavailable [phone] Destin George MD Unavailable + Rian Banks MD Primary Care Provider + [phone] Allergies Active Allergy Reactions Criticality Noted Date Comments Chlorthalidone Other (See comments) Low 11/21/2018 Hyponatremia when in trauma hospital Medications aspirin 81 mg chewable tablet Take 1 tablet (81 mg total) by mouth daily. 12/27/19 18 Active Additional Information Patient taking differently:81 mg oralEvery morning, Indications: prevention of thrombosis, Informant: Self, Reported on 02/25/2019 acetaminophen 500 mg capsule Take 2 capsules (1,000 mg total) by mouth every 6 (six) hours as needed for pain 30 tablet 06/26/19 21 Active metoprolol XL (TOPROL-XL) 25 mg extended release tablet Take 0.5 tablets (12.5 mg total) by mouth daily 15 tablet 06/27/19 21 Active senna-docusate (PERICOLACE) 8.6-50 mg Take 1 tablet by mouth 2 (two) times a day 20 tablet 06/26/19 21 Active atorvastatin (LIPITOR) 40 mg tablet Take 40 mg by mouth daily Active carvedilol (COREG) 25 mg tablet Take 1 tablet (25 mg total) by mouth 2 (two) times a day. 180 tablet 3 12/27/19 18 020 Discontinued chlorthalidone 25 mg tablet Take 1 tablet (25 mg total) by mouth daily. 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 Overview (05/20/2020): Added automatically from request for surgery [id number] Assessment & Plan (06/24/2020 12:42 PM CDT): - History of 6.1 cm thoracic aneurysm following total arch for Type A dissection - 06/19 for repair of thoracic aortic aneurysm, without left subclavian coverage, zone 3 to 5, ncovered stent placement zone 5 to zone 9 with lumbar drain placement - To ICU post-operatively for recovery - Lumbar drain accidentally disconnected overnight 06/20, clamped and remained neurovascularly intact - Q4h NV - Continue aspirin daily - PT/OT, OOB as much as tolerated Hyponatremia 03/15/2019 Assessment & Plan (03/18/2019 10:50 AM AUTOMOTIVE DISMANTLER): Daily BMP Na Improved to 131 Continue free water fluid restriction- 500 mls Poor appetite 03/15/2019 Assessment & Plan (03/18/2019 10:51 AM AUTOMOTIVE DISMANTLER): Recent tooth extraction Remains of mechanical soft diet Poor appetite-consider calorie count Continue nutritional supplement Postoperative pain 03/07/2019 Assessment & Plan (03/18/2019 10:51 AM AUTOMOTIVE DISMANTLER): Offer Tylenol 650 mg PRN Teach splinting technique Assessment & Plan (03/07/2019 6:36 AM AUTOMOTIVE DISMANTLER): Tylenol 1000mg q6h Dilaudid 0.2 prn Dissection of thoracic aorta 01/04/2019 Overview (01/04/2019): Added automatically from request for surgery [id number] Assessment & Plan (03/18/2019 10:49 AM AUTOMOTIVE DISMANTLER): S/p surgical repair VS q 4 hrs Continue Metoprolol 12.5 bid Goal SBP < 120 Assessment & Plan (03/07/2019 6:25 AM AUTOMOTIVE DISMANTLER): S/p Total aortic arch replacement (24mm) with Elephant trunk (22mm Dacron graft 10cm length) -Open Chest with merline-op ancef and vanc, closed on 03/05 Assessment & Plan (03/06/2019 1:52 AM AUTOMOTIVE DISMANTLER): S/p Total aortic arch replacement (24mm) with Elephant trunk (22mm Dacron graft 10cm length) -Open Chest with merline-op ancef and vanc, closed on 03/05 Assessment & Plan (03/05/2019 12:52 AM AUTOMOTIVE DISMANTLER): S/p Total aortic arch replacement (24mm) with Elephant trunk (22mm Dacron graft 10cm length) -Open Chest with merline-op ancef and vanc Assessment & Plan (03/04/2019 10:27 PM AUTOMOTIVE DISMANTLER): S/p Total aortic arch replacement (24mm) with Elephant trunk (22mm Dacron graft 10cm length) -Open Chest with merline-op ancef and vanc 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 Mckeon 03/2019 - BP goals normotensive Assessment & Plan (03/18/2019 10:53 AM AUTOMOTIVE DISMANTLER): s/p aortic arch repair with aortic root replacement on 03/04 with chest closure on 03/05 Ongoing PT and aggressive pulm toilet Continue aspirin and low dose BB Assessment & Plan (03/07/2019 6:25 AM AUTOMOTIVE DISMANTLER): Distal aortic arch with residual aortic dissection from 2017 -s/p on aortic arch repair with aortic root replacement on 03/04 -SBP 100-130, Nicardipine gtt -Chest closed 03/05 - awake, alert Assessment & Plan (03/06/2019 1:52 AM AUTOMOTIVE DISMANTLER): Distal aortic arch with residual aortic dissection from 2017 -s/p on aortic arch repair with aortic root replacement on 03/04 -SBP 100-130, Nicardipine gtt -Open Chest with periop ancef and vanc, closed 03/05 -sedation held to prepare for extubation Assessment & Plan (03/05/2019 12:52 AM AUTOMOTIVE DISMANTLER): Distal aortic arch with residual aortic dissection from 2016 -s/p on aortic arch repair with aortic root replacement on 03/04 -SBP 100-130, Nicardipine gtt -Open Chest with periop ancef and vanc - Propofol gtt - Fentanyl gtt Assessment & Plan (03/04/2019 10:29 PM AUTOMOTIVE DISMANTLER): Distal aortic arch with residual aortic dissection from 2016 -s/p on aortic arch repair with aortic root replacement on 03/04 -SBP 100-130, Nicardipine gtt -Open Chest with periop ancef and vanc Assessment & Plan (11/23/2018 6:41 PM CDT): He carries the residual aortic dissection post matt-arch aortic repair in June 2016. The proximal descending aorta is 5.8cm in the coronal view right distal to the left subclavian artery. I will see him in my outpatient clinic and discuss about his potential surgery, total arch aortic replacement with Elephant trunk surgery. Late effect of head trauma, cognitive deficits 0 07/10/2018 Traumatic brain injury 05/01/2018 Hypertension 09/02/2016 Resolved Problems Problem Noted Date Diagnosed Date Resolved Date Pleural effusion 03/08/2019 03/17/2019 Assessment & Plan (03/16/2019 12:32 PM AUTOMOTIVE DISMANTLER): 03/14 CXR with interpretation including: No pneumonia or edema. No effusion or pneumothorax. Heart size is normal. - remains on RA Will inactivate this problem Assessment & Plan (03/08/2019 2:09 AM AUTOMOTIVE DISMANTLER): Noted on CXR w/ continued increased o2 needs from baseline - CTM serial CXR as long as it is resolving and patient remains stable Endotracheally intubated 03/06/201908/2018 Assessment & Plan (03/06/2019 1:54 AM AUTOMOTIVE DISMANTLER): Arrived from OR intubated --wean sedation, PSV trial, extubate as able Cardiogenic postoperative shock 03/04/2019 03/12/2019 Assessment & Plan (03/12/2019 11:46 AM AUTOMOTIVE DISMANTLER): S/p aortic arch repair with aortic root replacement and coronary button reconstruction - Remains on low dose Epinephrine, unable to wean 2/2 to ScVo2 <60 - Epi off 03/10 am - will start (03/10) low dose Dobutamine at 2.5 mcg/kg/min per Dr. Mckeon - continue to monitor ScVo2 levels - continue diuresis - Lasix 40 IV with FBG - 1L - TTE 03/11 Assessment & Plan (03/07/2019 1:50 PM AUTOMOTIVE DISMANTLER): S/p aortic arch repair with aortic root replacement and coronary button reconstruction - Epi to maintain CI, wean q8 for scvo2>65 - Levo as needed for SBP - AAI paced at 105 - lactates downtrending - Lasix 20 IV with FBG -1 Assessment & Plan (03/06/2019 1:53 AM AUTOMOTIVE DISMANTLER): S/p aortic arch repair with aortic root replacement and coronary button reconstruction - Epi to maintain CI, wean q8 for scvo2>65 - Levo as needed for SBP - AAI paced at 105 - lactates downtrending Assessment & Plan (03/05/2019 12:51 AM AUTOMOTIVE DISMANTLER): S/p aortic arch repair with aortic root replacement and coronary button reconstruction - Epi to maintain CI - Levo as needed for SBP -AAI paced at 90 Assessment & Plan (03/04/2019 10:31 PM AUTOMOTIVE DISMANTLER): S/p aortic arch repair with aortic root replacement and coronary button reconstruction - Epi to maintain CI - Levo as needed for SBP Dental caries 02/13/2019 03/16/2019 Overview (02/13/2019): Added automatically from request for surgery [id number] Periodontitis 02/13/2019 03/16/2019 Overview (02/13/2019): Added automatically from request for surgery [id number] Ascending aortic aneurysm 12/12/2018 Overview (12/12/2018): Added automatically from request for surgery [id number] Assessment & Plan (03/14/2019 2:32 PM AUTOMOTIVE DISMANTLER): See above Encounter for other preprocedural examination 03/16/2019 Encounters Date Type Department Care Team Description 03/13/2024 Orders Only [facility] Vascular Surgery [address] [address] [place] [id number] Stephen Zaidi MD Dissection of descending thoracic aorta (HCC) (Primary Dx); Aftercare following surgery of the circulatory system from Last 3 Months Surgical History Surgery Date Site/Laterality Comments ASCENDING AORTIC ANEURYSM REPAIR 06/01/2016 - 07/01/2016 Type A dissection, Matt-arch with aortic valve re-suspension HERNIA REPAIR x2 PORT PLACEMENT CHEST >5 YEARS 03/30/2018 N/A Medical History Medical History Date Comments Personal history of other ve nous thrombosis and embolism History of deep venous throm bosis - (Added by TW Conv) Other specified postprocedural states Status post aortic dissection repair - (Added by TW Conv) Hyperlipidemia Hypertension Postoperative delirium Endotracheally intubated 03/06/2019 Encounter for other preproce dural examination Dental caries 02/13/2019 Added automatica lly from request for surgery [id number] Periodontitis 02/13/2019 Added automatica lly from request for surgery [id number] Pleural effusion 03/08/2019 Family History Medical History Relation Name Comments Heart attack Brother Family history of myocardial infarction - (Added by TW Conv) Heart disease Brother Cancer Father Family history of malignant neoplasm - (Added by TW Conv) Stroke Father Family history of cerebrovascular accident (CVA) - (Added by TW Conv) Cancer Mother Family history of malignant neoplasm - (Added by TW Conv) Stroke Mother Family history of cerebrovascular accident (CVA) - (Added by TW Conv) Anesthesia problems Neg Hx Relation Name Status Comments Brother Father Mother Social History Tobacco Use Types Packs/Day Years [...] Sexual Orientation Straight 04/17/2019 1: 10 PM AUTOMOTIVE DISMANTLER Obstetrics History Last Filed Vital Signs Vital Sign Reading Time Taken Comments Blood Pressure 156/95 02/10/2021 2:12 PM AUTOMOTIVE DISMANTLER Pulse 61 02/10/2021 2:12 PM AUTOMOTIVE DISMANTLER Temperature 36.3 C (97.4 F) 02/10/2021 2:12 PM AUTOMOTIVE DISMANTLER Respiratory Rate 16 06/25/2020 7:59 AM CDT Oxygen Saturation 97% 02/10/2021 2:12 PM AUTOMOTIVE DISMANTLER RA Inhaled Oxygen Concentration - - Weight 106.1 kg (234 lb) 02/10/2021 2:12 PM AUTOMOTIVE DISMANTLER Height 188 cm (6' 2 ) 02/10/2021 2:12 PM AUTOMOTIVE DISMANTLER Body Mass Index 30.04 02/10/2021 2:12 PM AUTOMOTIVE DISMANTLER Plan of Treatment Health Maintenance Due Date Last Done Comments Colon Cancer Screening-Colonoscopy 1957 Depression Screening 1957 Prostate Cancer Screening-PSA 1957 DTaP/Tdap/Td Vaccine (1 - Tdap) 1968 Hepatitis B Screening 1975 Pneumococcal vaccine 65+ (1 of 2 - PCV) 1976 Lung Cancer Screening 2007 Zoster Vaccine (1 of 2) 2007 Fall Risk Assessment 06/25/2021 06/25/2020 Abdominal Aortic Aneurysm (A AA) Screen 2022 02/16/2022, 02/10/2021, 07/29/2020, Additional history exists Well Visit 65+ 2022 Influenza Vaccine (#1) 2023 8, 06/23/2016, 03/19/2014 Hepatitis C Screening Completed 06/14/2016 Medical Devices Implanted Type Area Welding Operator Device Identifier Shelf Expiration Date Model / Serial / Lot [employer] [id number] Zenith Alpha Flexor Captor 32mm 28-29mm 201mm 2 Piece Proximal - [id number] Implanted:Qty: 1 on 06/19/2020 by Stephen Zaidi MD at [facility] Endoprosthesis N/A: Aorta [employer] [id number] 09/26/2021 [id number] / / [id number] Description:Proximal compone nt [employer] [id number] Zenith Alpha Flexor Captor 32mm 28-29mm 155mm 2 Piece Proximal - [id number] Implanted:Qty: 1 on 06/19/2020 by Stephen Zaidi MD at [facility] Endoprosthesis N/A: Aorta [employer] [id number] 12/11/2022 [id number] / / [id number] Description:Proximal compone nt (second given) [employer] [id number] Zenith 36mm 20-30mm 16mm 180mm 9 Dissection Introducer Sheath - [id number] Implanted:Qty: 1 on 06/19/2020 by Stephen Zaidi MD at [facility] Endoprosthesis N/A: Aorta [employer] [id number] 07/23/2022 [id number] / / [id number] Description:disection bare m etal Pickie [id number] [employer] [place] 22mm 30cm Woven Smooth Needle Passage Suture - [id number] - [id number] Implanted:Qty: 1 on 03/04/2019 by Mallory Mckeon MD PhD at [facility] N/A: Chest [employer] [id number] 12/01/2022 [id number] / [id number] / [id number] Pickie [id number] [employer] [place] 24mm 10/10/8/8mm 50cm Woven Soft 2 Pass Sew - [id number] - [id number] Implanted:Qty: 1 on 03/04/2019 by Mallory Mckeon MD PhD at [facility] N/A: Chest [employer] [id number] 01/31/2023 [id number] / [id number] / [id number] Pickie [id number] [employer] [place] 28mm 30cm Woven Smooth Needle Passage Suture - [id number] Implanted:Qty: 1 on 03/04/2019 by Song Estrada MD at [facility] N/A: Chest [employer] [id number] / / Med[employer] Inc [id number] 25mm Valve Aortic Latex Free 400 Series - [id number] - [id number] Implanted:Qty: 1 on 03/04/2019 by Mallory Mckeon MD PhD at [facility] N/A: Heart Med[employer] Inc 06/20/2021 [id number] / [id number] / Procedures Procedure Name Priority Date/Time Associated Diagnosis Comments CTA CHEST ABDOMEN PELVIS Schedule Routine, Read Routine (OP Routine) 02/16/2022 1:36 PM AUTOMOTIVE DISMANTLER Aftercare following surgery of the circulatory system Dissection of thoracic aorta (HCC) SERUM HEPATITIS C AB Routine 06/14/2016 5:20 AM CDT from Last 3 Months or Most Recently Relevant to Health Maintenance Results * CTA Chest Abdomen Pelvis (02/16/2022 1:36 PM AUTOMOTIVE DISMANTLER) Anatomical Region Laterality Modality Body N/A Computed Tomogra phy 02/16/2022 3:28 PM AUTOMOTIVE DISMANTLER Impressions 02/17/2022 4:18 AM AUTOMOTIVE DISMANTLER 1. Stable post-surgical changes of aortic root and arch replacement. 2. Interval increase in size at the isthmus (69 x 64 mm, previously 62 x 59 mm) of a thoracoabdominal aortic aneurysm and dissection status post endovascular stent graft with type 2 endoleak from a paraesophageal artery in the proximal descending aorta. Unchanged backfilling of the false lumen by the celiac, superior mesenteric, inferior mesenteric and right external iliac artery fenestrations. 3. Slight interval increase in aneurysmal dilation of the right common iliac artery (32 x 28 mm, previously 30 x 25 mm). Dictated by: Chica Britt M.D. The radiology attending physician has personally reviewed this study, and had reviewed and/or edited this written report and agrees with it. Electronically signed by: Jacob Hampton M.D. Narrative 02/17/2022 4:18 AM AUTOMOTIVE DISMANTLER EXAMINATION: CT ANGIOGRAPHY OF THE CHEST, ABDOMEN AND PELVIS WITH AND WITHOUT CONTRAST HISTORY: 66-year-old man with type A aortic dissection status post aortic root and aortic arch replacement with residual descending thoracic aortic dissection. TECHNIQUE: CT angiography of the chest, abdomen and pelvis was performed prior to and following the uneventful intravenous administration of 125 ml Optiray-350 using the post-endoluminal stent graft protocol. Vascular 3D images were generated on a dedicated workstation and also reviewed. COMPARISON: CTA chest abdomen pelvis on 02/10/2021 FINDINGS: VASCULAR FINDINGS: Postsurgical change of aortic root and arch replacement are stable. Unchanged residual aortic chimney (series 5, image 105) Postsurgical changes of endovascular stent extending from just past the brachiocephalic artery to aortic bifurcation. There has been no migration of the graft since the last exam. There is evidence of a type 2 endoleak arising from a paraesophageal artery (series 5, image 97). The maximum diameter of the thoracic aneurysm is 69 mm AP x 64 mm [id number]. This is increased since the prior exam, previously 62 x 59 mm. The maximum diameter of the graft is 32 mm AP x 31 mm [id number]. This is relatively stable since the prior exam. The maximum diameter of the descending thoracic aorta is 48 mm AP x 44 mm [id number]. This is stable since the prior exam. Interval increase in size of right common iliac artery aneurysm measuring 32 mm x 28 mm previously measuring 30 x 25 mm. Unchanged dissection flap extending into the celiac axis, superior mesenteric artery and right common iliac and right external iliac arteries. Unchanged backfilling of the false lumen via fenestrations within the celiac axis, a fenestration within the distal superior mesenteric artery, and a fenestration within the right external iliac artery as well as retrograde through the inferior mesenteric artery. The renal arteries arises from the true lumen; however suggestion of some dissection extension into the left renal artery. The inferior mesenteric artery arises from the false lumen. Unchanged atherosclerotic coronary artery disease. NON-VASCULAR FINDINGS: Chest: No focal consolidation or suspicious pulmonary nodules. Right basilar atelectasis. Emphysematous changes are noted. No pleural effusion. Central airways are clear. Heart size is normal without pericardial effusion. Esophagus is nondistended. Imaged portions of the thyroid gland are normal. Main pulmonary artery is normal in caliber. Unchanged right paratracheal lymph node measuring 1.7 cm. Abdomen/Pelvis: No suspicious focal hepatic lesion or arterial phase. No intrahepatic or extra hepatic biliary ductal dilation. Portal vein is nondistended. Gallstones are noted without cholecystitis. Stomach, duodenum, pancreas and adrenal glands are normal. Splenic granulomas. Multiple bilateral renal cysts. No hydronephrosis. No nephrolithiasis. Urinary bladder is normal. Postsurgical changes of right inguinal hernia repair. Prostate is present. Colonic diverticulosis without diverticulitis. Large and small bowel are normal in caliber without evidence of obstruction. No pneumoperitoneum or ascites. No abdominal or pelvic lymphadenopathy. Multiple calcifications near the base of the penis likely representing Peyronie's disease. Postsurgical changes of median sternotomy wires are aligned and intact. Degenerative changes predominantly in the cervical and lumbar spine. Procedure Note Jacob Hampton MD - 02/17/2022 EXAMINATION: CT ANGIOGRAPHY OF THE CHEST, ABDOMEN AND PELVIS WITH AND WITHOUT CONTRAST HISTORY: 66-year-old man with type A aortic dissection status post aortic root and aortic arch replacement with residual descending thoracic aortic dissection. TECHNIQUE: CT angiography of the chest, abdomen and pelvis was performed prior to and following the uneventful intravenous administration of 125 ml Optiray-350 using the post-endoluminal stent graft protocol. Vascular 3D images were generated on a dedicated workstation and also reviewed. COMPARISON: CTA chest abdomen pelvis on 02/10/2021 FINDINGS: VASCULAR FINDINGS: Postsurgical change of aortic root and arch replacement are stable. Unchanged residual aortic chimney (series 5, image 105) Postsurgical changes of endovascular stent extending from just past the brachiocephalic artery to aortic bifurcation. There has been no migration of the graft since the last exam. There is evidence of a type 2 endoleak arising from a paraesophageal artery (series 5, image 97). The maximum diameter of the thoracic aneurysm is 69 mm AP x 64 mm [id number]. This is increased since the prior exam, previously 62 x 59 mm. The maximum diameter of the graft is 32 mm AP x 31 mm [id number]. This is relatively stable since the prior exam. The maximum diameter of the descending thoracic aorta is 48 mm AP x 44 mm [id number]. This is stable since the prior exam. Interval increase in size of right common iliac artery aneurysm measuring 32 mm x 28 mm previously measuring 30 x 25 mm. Unchanged dissection flap extending into the celiac axis, superior mesenteric artery and right common iliac and right external iliac arteries. Unchanged backfilling of the false lumen via fenestrations within the celiac axis, a fenestration within the distal superior mesenteric artery, and a fenestration within the right external iliac artery as well as retrograde through the inferior mesenteric artery. The renal arteries arises from the true lumen; however suggestion of some dissection extension into the left renal artery. The inferior mesenteric artery arises from the false lumen. Unchanged atherosclerotic coronary artery disease. NON-VASCULAR FINDINGS: Chest: No focal consolidation or suspicious pulmonary nodules. Right basilar atelectasis. Emphysematous changes are noted. No pleural effusion. Central airways are clear. Heart size is normal without pericardial effusion. Esophagus is nondistended. Imaged portions of the thyroid gland are normal. Main pulmonary artery is normal in caliber. Unchanged right paratracheal lymph node measuring 1.7 cm. Abdomen/Pelvis: No suspicious focal hepatic lesion or arterial phase. No intrahepatic or extra hepatic biliary ductal dilation. Portal vein is nondistended. Gallstones are noted without cholecystitis. Stomach, duodenum, pancreas and adrenal glands are normal. Splenic granulomas. Multiple bilateral renal cysts. No hydronephrosis. No nephrolithiasis. Urinary bladder is normal. Postsurgical changes of right inguinal hernia repair. Prostate is present. Colonic diverticulosis without diverticulitis. Large and small bowel are normal in caliber without evidence of obstruction. No pneumoperitoneum or ascites. No abdominal or pelvic lymphadenopathy. Multiple calcifications near the base of the penis likely representing Peyronie's disease. Postsurgical changes of median sternotomy wires are aligned and intact. Degenerative changes predominantly in the cervical and lumbar spine. IMPRESSION: 1. Stable post-surgical changes of aortic root and arch replacement. 2. Interval increase in size at the isthmus (69 x 64 mm, previously 62 x 59 mm) of a thoracoabdominal aortic aneurysm and dissection status post endovascular stent graft with type 2 endoleak from a paraesophageal artery in the proximal descending aorta. Unchanged backfilling of the false lumen by the celiac, superior mesenteric, inferior mesenteric and right external iliac artery fenestrations. 3. Slight interval increase in aneurysmal dilation of the right common iliac artery (32 x 28 mm, previously 30 x 25 mm). Dictated by: Chica Britt M.D. The radiology attending physician has personally reviewed this study, and had reviewed and/or edited this written report and agrees with it. Electronically signed by: Jacob Hampton M.D. us Stephen Zaidi MD IMG CT PROCEDURES Final Re sult * Serum Hepatitis C ab (06/14/2016 5:20 AM CDT) HCV ab Nonreactive CDR HIST ORICAL RESULTS Serum 06/14/2016 5:20 AM CDT us Mallory Mckeon MD PhD LAB BLOOD ORDERABLES Final R esult CDR HISTORICAL RESULTS from Last 3 Months or Most Recently Relevant to Health Maintenance Insurance MEDICARE [facility] [employer] MEDICAID MMAI [facility] PLAN MEDICARE MEDICARE MANAGED MEDICAID GENERIC RISK OTHER [employer] CHOICE MEDICARE PPO [facility]PA [facility] Advance Directives For more information, please contact: [phone] * Full Code (Latest Code Status on File) Date Activated Date Inactivated Comments 06/19/2020 3:51 PM 06/25/2020 5:29 PM * Full Code Date Activated Date Inactivated Comments 03/05/2019 12:19 AM 03/19/2019 9:41 PM * Full Code Date Activated Date Inactivated Comments 03/04/2019 8:42 PM 03/05/2019 12:19 AM * Full Code Date Activated Date Inactivated Comments 01/15/2019 10:26 AM 01/15/2019 6:21 PM Care Teams Crushing Mill Operator Relationship Specialty Start Date End Date Rian Banks MD [address] [place] [address] PCP - General Internal Medicine 11/27/23 Sander Church MD Combined Rail Operator Cardiology 03/11/19 Destin George MD [address] [place] [address] Referring Physician Family Medicine 06/25/20
--- OUTSIDE RECORDS SUMMARY | 2024-06-10 18:23 | XMS_ITS | Referral Summary ---
Author Organization [facility] Address [address] [place] [address] Care Team Providers Care Well Digger Name Role Phone Unavailable Primary Care Provider Unavailabl e Source Comments [facility],non-owned Affiliates and Associated Physician Practices is amultiple site organization consisting of ambulatory clinics and hospital sitesin [place], [place], [place] and [place]. This disclosure is being madepursuant to the Care Everywhere program and may not contain all information available regarding this patient. Last updated 17.[facility] [employer] Allergies No known active allergies Medications * [...] Traumatic cerebral intraparenchymal hematoma [facility] Posttraumatic respiratory [...] CDT Respiratory Rate 17 04/06/2018 12:47 PM WASTE MACHINE OPERATOR Oxygen Saturation 96% 04/06/2018 12:47 PM WASTE MACHINE OPERATOR Inhaled Oxygen Concentration - - Weight 100.2 kg (221 lb) 06/14/2018 1:04 PM CDT Height 190.5 cm (6' 3 ) 06/14/2018 1:04 PM CDT Body Mass Index 27.62 06/14/2018 1:04 PM CDT Functional Status Functional Status Response Date of Assess ment Is person deaf or have serious hearing difficult y? No 03/29/2018 Is person blind or have serious difficulty seein g? No 03/29/2018 Does person have serious dif ficulty walking/climbing stairs? No 03/29/2018 Does person have difficulty dressing/bathing? No 03/29/2018 Does person have difficulty doing errands alone? No 03/29/2018 Cognitive Status Response Date of Assessm ent Does person have difficulty concentrating/remembering/making decisions? Yes 03/29/2018 Plan of Treatment Not on file Procedures Procedure Name Priority Date/Time Associated Diagnosis Comments BASIC METABOLIC PANEL (CALCIUM TOTAL) Routine 04/05/2018 3:15 AM WASTE MACHINE OPERATOR from Last 3 Months or Most Recently Relevant to Health Maintenance Results * (ABNORMAL) BASIC METABOLIC PANEL (CALCIUM TOTAL) (04/05/2018 3:15 AM WASTE MACHINE OPERATOR) BUN 17 7 - 26 mg/dL 04/05/2018 4:10 AM [facility] Creatinine 0.7 0.6 - 1.2 mg/dL 04/05/2018 4:10 AM [facility] Sodium 140 136 - 145 mmol/L 04/05/2018 4:10 AM [facility] Potassium 3.6 3.5 - 4.5 mmol/L 04/05/2018 4:10 AM [facility] Chloride 107 98 - 107 mmol/L 04/05/2018 4:10 AM [facility] CO2 21(L) 22 - 29 mmol/L 04/05/2018 4:10 AM [facility] Glucose 98 70 - 115 mg/dL 04/05/2018 4:10 AM [facility] Calcium 9.1 8.4 - 10.2 mg/dL 04/05/2018 4:10 AM [facility] Anion Gap 16 8 - 18 04/05/2018 4:10 AM [facility] BUN/Creatinine Ratio 24(H) 7 - 23 04/05/2018 4:10 AM [facility] Osmolality Calculated 292 270 - 300 mOsm/kg 04/05/2018 4:10 AM [facility] eGFR >60 >60 mL/min/1.7 3 m2 04/05/2018 4:10 AM [facility] Blood BLOOD SPECIMEN / Unknown Lab Venipuncture / Unknown 04/05/2018 3:15 AM WASTE MACHINE OPERATOR 04/05/2018 3:37 AM WASTE MACHINE OPERATOR Jose Silverman CYBER SPECIAL AGENT-PAN OPERATOR LAB - CHEMISTRY ORDERABLES [facility] [address] [phone] from Last 3 Months or Most Recently [...]
--- OUTSIDE RECORDS SUMMARY | 2024-06-10 18:23 | XMS_ITS | Referral Summary ---
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); Aftercare following surgery of the circulatory system from Last 3 Months Allergies Active Allergy Reactions Criticality Noted Date [...] mg total) by mouth daily 15 tablet 03/26/20 21 Active senna-docusate (PERICOLACE) 8.6-50 mg Take [...] (05/20/2020): Added automatically from request for surgery [id number] Assessment & Plan (06/24/2020 12:42 PM CDT): [...] 03/15/2019 Assessment & Plan (03/18/2019 10:50 AM FREIGHT CALLER): Daily BMP Na Improved to 131 Continue free water fluid restriction- 500 mls Poor appetite 03/15/2019 Assessment & Plan (03/18/2019 10:51 AM FREIGHT CALLER): Recent tooth extraction Remains of mechanical soft diet Poor appetite-consider calorie count Continue nutritional supplement Postoperative pain 03/07/2019 Assessment & Plan (03/18/2019 10:51 AM FREIGHT CALLER): Offer Tylenol 650 mg PRN Teach splinting technique Assessment & Plan (03/07/2019 6:36 AM FREIGHT CALLER): Tylenol 1000mg q6h Dilaudid 0.2 prn Dissection of thoracic aorta 01/04/2019 Overview (01/04/2019): Added automatically from request for surgery [id number] Assessment & Plan (03/18/2019 10:49 AM FREIGHT CALLER): S/p surgical repair VS q 4 hrs Continue Metoprolol 12.5 bid Goal SBP < 120 Assessment & Plan (03/07/2019 6:25 AM FREIGHT CALLER): S/p Total aortic arch replacement (24mm) with Elephant trunk (22mm Dacron graft 10cm length) -Open Chest with merline-op ancef and vanc, closed on 03/05 Assessment & Plan (03/06/2019 1:52 AM FREIGHT CALLER): S/p Total aortic arch replacement (24mm) with Elephant trunk (22mm Dacron graft 10cm length) -Open Chest with merline-op ancef and vanc, closed on 03/05 Assessment & Plan (03/05/2019 12:52 AM FREIGHT CALLER): S/p Total aortic arch replacement (24mm) with Elephant trunk (22mm Dacron graft 10cm length) -Open Chest with merline-op ancef and vanc Assessment & Plan (03/04/2019 10:27 PM FREIGHT CALLER): S/p Total aortic arch replacement (24mm) with Elephant trunk (22mm Dacron graft 10cm length) -Open Chest with merline-op ancef and vanc 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 -s/p on aortic arch repair with aortic root replacement on 03/04 -SBP 100-130, Nicardipine gtt -Open Chest with periop ancef and vanc, closed 03/05 -sedation held to prepare for extubation Assessment & Plan (03/05/2019 12:52 AM FREIGHT CALLER): 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 The proximal [...] 03/17/2019 Assessment & Plan (03/16/2019 12:32 PM FREIGHT CALLER): 03/14 CXR with interpretation including: No pneumonia or edema. No effusion or pneumothorax. Heart size is normal. - remains on RA Will inactivate this problem Assessment & Plan (03/08/2019 2:09 AM FREIGHT CALLER): Noted on CXR w/ continued increased o2 needs from baseline - CTM serial CXR as long as it is resolving and patient remains stable Endotracheally intubated 03/06/201908/2018 Assessment & Plan (03/06/2019 1:54 AM FREIGHT CALLER): Arrived from OR intubated --wean sedation, PSV trial, extubate as able Cardiogenic postoperative shock 03/04/2019 03/12/2019 Assessment & Plan (03/12/2019 11:46 AM FREIGHT CALLER): S/p aortic arch repair with aortic root [...] 03/11 Assessment & Plan (03/07/2019 1:50 PM FREIGHT CALLER): S/p aortic arch repair with aortic root replacement and coronary button reconstruction - Epi to maintain CI, wean q8 for scvo2>65 - Levo as needed for SBP - AAI paced at 105 - lactates downtrending - Lasix 20 IV with FBG -1 Assessment & Plan (03/06/2019 1:53 AM FREIGHT CALLER): S/p aortic arch repair with aortic root replacement and coronary button reconstruction - Epi to maintain CI, wean q8 for scvo2>65 - Levo as needed for SBP - AAI paced at 105 - lactates downtrending Assessment & Plan (03/05/2019 12:51 AM FREIGHT CALLER): S/p aortic arch repair with aortic root replacement and coronary button reconstruction - Epi to maintain CI - Levo as needed for SBP -AAI paced at 90 Assessment & Plan (03/04/2019 10:31 PM FREIGHT CALLER): S/p aortic arch repair with aortic root replacement and coronary button reconstruction - Epi to maintain CI - Levo as needed for SBP Dental caries 02/13/2019 03/16/2019 Overview (02/13/2019): Added automatically from request for surgery [id number] Periodontitis 02/13/2019 03/16/2019 Overview (02/13/2019): Added automatically from request for surgery [id number] Ascending aortic aneurysm 12/12/2018 Overview (12/12/2018): Added automatically from request for surgery [id number] Assessment & Plan (03/14/2019 2:32 PM FREIGHT CALLER): See above Encounter for other preprocedural examination 03/16/2019 Social History Tobacco Use Types Packs/Day Years [...] Sexual Orientation Straight 04/17/2019 1: 10 PM FREIGHT CALLER Last Filed Vital Signs Vital Sign Reading Time Taken Comments Blood Pressure 156/95 02/10/2021 2:12 PM FREIGHT CALLER Pulse 61 02/10/2021 2:12 PM FREIGHT CALLER Temperature 36.3 C (97.4 F) 02/10/2021 2:12 PM FREIGHT CALLER Respiratory Rate 16 06/25/2020 7:59 AM CDT Oxygen Saturation 97% 02/10/2021 2:12 PM FREIGHT CALLER RA Inhaled Oxygen Concentration - - Weight 106.1 kg (234 lb) 02/10/2021 2:12 PM FREIGHT CALLER Height 188 cm (6' 2 ) 02/10/2021 2:12 PM FREIGHT CALLER Body Mass Index 30.04 02/10/2021 2:12 PM FREIGHT CALLER Plan of Treatment Not on file Medical Devices Implanted Type Area Director [employer] Device Identifier Shelf Expiration Date Model / Serial / Lot [employer] [id number] Zenith Alpha Flexor Captor 32mm 28-29mm 201mm 2 Piece Proximal - [id number] Implanted:Qty: 1 on 06/19/2020 by Stephen Zaidi MD at [facility] Endoprosthesis N/A: Aorta [employer] [id number] 09/26/2021 [id number] / / [id number] Description:Proximal compone nt [employer] [id number] Zenith Alpha Flexor Captor 32mm 28-29mm 155mm 2 Piece Proximal - [id number] Implanted:Qty: 1 on 06/19/2020 by Stephen Zaidi MD at [facility] Endoprosthesis N/A: Aorta [employer] [id number] 12/11/2022 [id number] / / [id number] Description:Proximal compone nt (second given) [employer] [id number] Zenith 36mm 20-30mm 16mm 180mm 9 Dissection Introducer Sheath - [id number] Implanted:Qty: 1 on 06/19/2020 by Stephen Zaidi MD at [facility] Endoprosthesis N/A: Aorta [employer] [id number] 07/23/2022 [id number] / / [id number] 2 Description:disection bare m etal [employer] [id number] Hemashield [place] 22mm 30cm Woven Smooth Needle Passage Suture - [id number] - [id number] Implanted:Qty: 1 on 03/04/2019 by Mallory Mckeon MD PhD at [facility] N/A: Chest [employer] [employer] [id number] 12/01/2022 [id number] / [id number] / [id number] [employer] [id number] Hemashield [place] 24mm 10/10/8/8mm 50cm Woven Soft 2 Pass Sew - [id number] - [id number] Implanted:Qty: 1 on 03/04/2019 by Mallory Mckeon MD PhD at [facility] N/A: Chest [employer] [id number] 01/31/2023 [id number] / [id number] / [id number] [employer] [id number] Hemashield [place] 28mm 30cm Woven Smooth Needle Passage Suture - [id number] Implanted:Qty: 1 on 03/04/2019 by Song Estrada MD at [facility] N/A: Chest [employer] [id number] / / Medtronic Inc [id number] 25mm Valve Aortic Latex Free 400 Series - [id number] - [id number] Implanted:Qty: 1 on 03/04/2019 by Mallory Mckeon MD PhD at [facility] N/A: Heart [employer] 06/20/2021 [id number] / [id number] / Procedures Procedure Name Priority Date/Time Associated Diagnosis Comments CTA CHEST ABDOMEN PELVIS Schedule Routine, Read Routine (OP Routine) 02/16/2022 1:36 PM FREIGHT CALLER Aftercare following surgery of the circulatory system Dissection of thoracic aorta (HCC) SERUM HEPATITIS C AB Routine 06/14/2016 5:20 AM CDT from Last 3 Months or Most Recently Relevant to Health Maintenance Results * CTA Chest Abdomen Pelvis (02/16/2022 1:36 PM FREIGHT CALLER) Anatomical Region Laterality Modality Body N/A Computed Tomogra phy 02/16/2022 3:28 PM FREIGHT CALLER Impressions 02/17/2022 4:18 AM FREIGHT CALLER 1. Stable post-surgical changes of aortic root [...] 30 x 25 mm). Dictated by: Chica Anuja Mehrsheikh, M.D. The radiology attending physician has personally reviewed this study, and had reviewed and/or edited this written report and agrees with it. Electronically signed by: Jacob Hampton M.D. Narrative 02/17/2022 4:18 AM FREIGHT CALLER EXAMINATION: CT ANGIOGRAPHY OF THE CHEST, ABDOMEN [...] is 69 mm AP x 64 mm anujj-eb-line. This is increased since the prior exam, previously 62 x 59 mm. The maximum diameter of the graft is 32 mm AP x 31 mm iaidc-ls-xmom. This is relatively stable since the prior exam. The maximum diameter of the descending thoracic aorta is 48 mm AP x 44 mm imiei-no-kksl. This is stable since the prior exam. [...] is 69 mm AP x 64 mm fkmni-iz-xvkw. This is increased since the prior exam, previously 62 x 59 mm. The maximum diameter of the graft is 32 mm AP x 31 mm ecavm-dc-zsgr. This is relatively stable since the prior exam. The maximum diameter of the descending thoracic aorta is 48 mm AP x 44 mm vxvlq-gf-ewnj. This is stable since the prior exam. [...] Recently Relevant to Health Maintenance Insurance [place] [address] [place] [address] [place] [id number] [employer] [place] [address] [place] [address] MEDICAID IDPA [facility] [place] [address] MEDICARE MANAGED MEDICAID GENERIC RISK OTHER [employer] CHOICE MEDICARE PPO [facility] Advance Directives For more information, please contact: [phone] * Full Code (Latest Code Status on File) Date Activated Date Inactivated Comments 06/19/2020 3:51 PM 06/25/2020 5:29 PM * Full Code Date Activated Date Inactivated Comments 03/05/2019 12:19 AM 03/19/2019 9:41 PM * Full Code Date Activated Date Inactivated Comments 03/04/2019 8:42 PM 03/05/2019 12:19 AM * Full Code Date Activated Date Inactivated Comments 01/15/2019 10:26 AM 01/15/2019 6:21 PM Care Teams Pyrometer Operator Relationship Specialty Start Date End Date Rian Banks MD [address] [place] [address] PCP - General Internal Medicine 11/27/23 Sander Church MD Investigator Internal Revenue Cardiology 03/11/19 Destin George MD [address] [place] [address] Referring Physician Family Medicine 06/25/20
--- OUTSIDE RECORDS SUMMARY | 2024-06-10 18:23 | XMS_ITS | Data Portability ---
Author Organization [place] - [facility], Main Office Address [address] [place] [address] Assessment No assessment recorded. Plan of Treatment Reminders Order Date Submit Date Provider Last Modified By Organization Details Last Modified Time Details Appointments None recorded. Lab CBC w/ auto diff 2023 A[facility]KS Not available 20:45:59 CMP, serum or plasma 2023 ALEKS Not available 20:45:59 lipid panel, serum 2023 [facility] (Lab), [address] [place], [address], 4 20:45:59 TSH + free T4, serum 2023 ALEKS Not available 4 20:45:59 noninvasiv e colorectal cancer DNA + occult blood screening, QL, stool [facility] [address], [address], [place], [address], 4 07:48:16 hepatitis C virus Ab, serum 2023 ALEKS Not available 4 20:46:00 HbA1c (hemoglobi n A1c), blood 2023 A[facility]KS Not available 20:45:59 Referral dermatolog ist referral 2023 [facility], [address] [place] [address], [address], 4 08:08:11 Procedures None recorded. Surgeries None recorded. Imaging US, screening for abdominal aortic aneurysm 2023 024 ALEKS Not available 12:19:21 Medication Orders metoprolol tartrate 25 mg tablet 2023 024 [id number], [address], [place], [id number], 16:06:16 Patient TargetsNo targets recorded. Patient Instructions Encounter Date Encounter Id Patient Instructions Last Modified By Organization Details Last Modified Time 11/29/2023 [id number] Follow up in 3 months for MAWV Prescription sent to pharmacy Obtain labs Tests: Complete Aneurysm screening Complete cologuard Referral: Dermatology-nodul e in right canthus and rash to left canthus Recommend: Influenza vaccine Pneumococcal vaccine Tetanus vaccine Shingles vaccine [email or web address] Not available 11/29/2023 16:04:59 Reason for Referral Nursing Unit Manager Referral for L esion of left canthus Referring Physician: Patsy Gonzalez, Internal Medicine, Encounter Date: 11/29/2023 Results Created Date Observation Date Name Description Value Unit Range Abnormal Flag Note LastModifiedBy Organization Detail LastModifiedTime 12/11/19 24 12/11/2023 US, scree beverley for abdom inal aorti c aneur ysm No observ ation record ed. [address], [place], [address], 12/11/2023 12:19:21 Result Notes None recorded. Problems Name Problem SNOMED Code Status Onset Date Resolution Date Notes Provider Name and Address Organization Details Recorded Time Essential hypertensio n 50119874 Active 2014 Patsy Gonzalez APRN [address], [place] [address], [place], [address] , [facility] 4 15:50:15 Lesion of left canthus 1446234160498 9105 Active 2023 Patsy Gonzalez APRN [address], [address], [place], [address], [facility] 4 15:51:00 Lesion of cants 5567447820573 5 Active 2023 Patsy VANDANA Gonzalez [address], [address], [place], [address], [facility] 4 15:51:14 Aneurysmect herrera of aortic arch Active 2023 Patsy Gonzalez APRN [address], [address], [place], [address], [facility] 16:04:19 Problem Notes None recorded. Procedures Surgical History Date Name Laterality Status Provider Name and Address Organization Details Recorded Time Medicare Wellness CPT Code, subsequent cancelled Patsy VANDANA Gonzalez [address], [place], [address], [facility] 02/17/2024 12:10:31 open heart surgery completed Mere Pacheco MA [employer] [facility] 11/29/2023 15:36:50 Hernia Repair completed Mere Pacheco MA [employer] [facility] 11/29/2023 15:37:30 Oral surgery procedure completed Mere Pacheco MA [employer] 11/29/2023 15:38:05 Imaging Results Imaging Date Name Status LastModified by Organiz ation Details LastModified Time 12/11/2023 , screening for abdominal aortic aneurysm completed [address], [place], [address], 12/11/2023 12:19:21 Procedure Notes None recorded. Medical Equipment None Reported. Allergies No known drug allergies Medications Name Sig Start Date Stop Date Status Note LastModified by Organization Details LastModified Time metoprolol tartrate 25 mg tablet TAKE 1 TABLET BY MOUTH EVERY DAY DIRECTED FOR HIGH BLOOD PRESSURE 024 active Not Available Not Available Not Avai lable Advil PRN active Not Available Not Availa ble Not Available Vitals Date Recorded Body height Body mass index (BMI) Body weight Body temperature Heart rate Oxygen saturation Oxygen saturation in Arterial blood by Pulse oximetry Systolic blood pressure Diastolic blood pressure Provider Name and Address Organization Details Last Updated DateTime 187.96 cm 25.5 kg/m2 72500.8 8 g 98.5 [degF] 78 /min 97 % 97 % 130 mm[Hg] 84 mm[Hg] Mere Pacheco MA [facility] 15:39:40 Social History Question Answer Notes LastModified by Organizat ion Details LastModified Time Tobacco Smoking Status Current Every Day Smoker Mere Pacheco MA null, [facility] 11/29/2023 15:35:26 What Is Your Level Of Alcohol Consumption? Occasional Information not available 11/29/2023 What Is Your Level Of Caffeine Consumption? Occasional Information not available 11/29/2023 In The 14 Days Before Symptom Onset, Have You Had Close Contact With A Laboratory-confir med COVID-19 While That Case Was Ill? No Information not available 11/29/2023 In The 14 Days Before Symptom Onset, Have You Had Close Contact With A Person Who Is Under Investigation For COVID-19 While That Person Was Ill? No Information not available 11/29/2023 Are You Currently Employed? No Information not available 11/29/2023 What Type Of Diet Are You Following? REGULAR Information not available 11/29/2023 Do You Or Have You Ever Used E-cigarettes Or Vape? Never Used Electronic Cigarettes Information not available 11/29/2023 Have There Been Any Changes To Your Family Or Social Situation? No Information no t available 11/29/2023 Do You Use Insect Repellent Routinely? No Information not available 11/29/2023 Where Do You Live? Apartment Information not available 11/29/2023 What Was The Date Of Your Most Recent Tobacco Screening? 11/29/2023 Information not available 11/29/2023 Do You Have Any Pets? No Information not available 11/29/2023 What Is Your Relationship Status? Single Information not available 11/29/2023 Do You Use Your Seat Belt Or Car Seat Routinely? Yes Information not available 11/29/2023 Do You Have Smoke And Carbon Monoxide Detectors In Your Home? No Information not available 11/29/2023 At What Age Did You Start Smoking Tobacco? 23 Information not available 11/29/2023 Are You Passively Exposed To Smoke? No Information no t available 11/29/2023 Are There Any Smokers In Your House? No Information not available 11/29/2023 How Much Tobacco Do You Smoke? 1 PPW Information not available 11/29/2023 Do You Feel Stressed (tense, Restless, Nervous, Or Anxious, Or Unable To Sleep At Night)? JD8842-4 Information not available 11/29/2023 Do You Use Any Illicit Or Recreational Drugs? No Information not available 11/29/2023 Do You Use Sunscreen Routinely? No Information not available 11/29/2023 Have You Recently Traveled Abroad? No Information not available 11/29/2023 Do You Have Any Dietary Restrictions? No Information not available 11/29/2023 Do You Or Have You Ever Used Any Other Forms Of Tobacco Or Nicotine? Yes Cigar Information not available 11/29/2023 Sex: Unknown Functional Status Question Answer Note LastModified by Organizat ion Details LastModified Time What is your exercise level? Occasional Information not available 11/29/2023 Mental Status None recorded. Family History Nothing Reported. Medical History No medical history recorded. Immunizations Vaccine Type Date Status Note Provider Nam e and Address Organization Details Recorded Time Influenza, high-dose, quadrivalent, PF 12/13/2022 completed Patsy Gonzalez APRN [address], [address], [place], [address], [facility] 11/29/2023 15:45:11 COVID-19 vaccine, vector-nr, rS-Ad26, PF, 0.5 mL 07/11/2020 completed Patsy Gonzalez APRN [address], [address], [place], [address], [place] [employer] 11/29/2023 15:45:11 Influenza, split virus, trivalent, PF 03/19/2014 completed Patsy Gonzalez APRN [address], [address], [place], [address], [employer] 11/29/2023 15:45:11 Influenza, split virus, quadrivalent, PF 12/27/2017 completed Patsy Gonzalez APRN [address], [place], [address], [employer] [facility] 11/29/2023 15:45:11 Past Encounters Encounter ID Performer Location Encounter Start Date Encounter Closed Date Diagnosis/Indication Diagnosis SNOMED-CT Code Diagnosis ICD10 Code Diagnosis Note [id number] Patsy Gonzalez APRN [facility] Internal Med Paola galarza [address] [facility] [address] [facility] [place] [address] 11/29/2023 15:18:39 11/29/2023 16:15:46 Essential hypertension 27132894 I10 Lesion of left canthus 7213135628 4331704 H02.9 Diabetes m ellitus screening 983741875 Z13.1 Hyperlipid emia screening 391124615 Z13.220 Screening for disorder 861178898 Z13.9 Thyroid di sorder screening 446323618 Z13.29 Abdominal aortic aneurysm screening 463898091 Z13.6 Hepatitis C screening 41 9958523 Z11.59 Screening for malignant neoplasm of colon 386507731 Z12.11 Health Concerns Section Related Observation LastModified by Organization Detai ls LastModified Time None Recorded Concern Status LastModified by Organization Details LastModified Time None Recorded Advance Directives Directive None Recorded Payers Encounter Date Sequence Insurance Name Policy Number Policy Ramirez Covered Member ID Ramirez Member ID Guarantor Name 11/29/2023 1 [employer] - DUAL ELIGIBLE - [employer] (MEDICARE - HMO) Stephen Garrett [id number] Stephen Garrett Notes Date Note Type Note Provider Name and Address Organization Details Recorded Time 11/29/2023 text/html Stephen presents today to establish care as a new patient. He states that he needs a referral for dermatology due to an open area on his left canthus. He states that it itches and if it is rubbed then it will hurt. On the right canthus area, there is a nodule that also needs to be evaluated. He states that he has had toe nail fungus that he cannot get rid of and would like help with that. Patsy Gonzalez, [employer] [address] [facility] [address], [place], [address], [place] [facility] 11/29/2023 16:13:48
[2024-06-10 20:18] LABS: Alanine Aminotransferase 24 U/L (6-50); Albumin Level 4.3 g/dL (3.5-5.1); Alkaline Phosphatase 119 U/L (38-126); Anion Gap 9 mmol/L (4-12); Aspartate Amino Transferase 44 U/L (17-59); Bilirubin,Total 0.8 mg/dL (0.2-1.3); Blood Urea Nitrogen 21 mg/dL (9-20); Calcium 9.7 mg/dL (8.4-10.2); Carbon Dioxide 27 mmol/L (22-30); Chloride 100 mmol/L (98-107); Cholesterol 230 mg/dL (0-200); Estimated Glomerular Filt Rate > 60; Glucose 108 mg/dL (65-110); HDL Direct 62 mg/dL; Potassium 4.8 mmol/L (3.4-5.0); Sodium 136 mmol/L (137-145); Triglycerides 118 mg/dL (<150)
[2024-06-10 20:30] LABS: LDL Cholesterol Direct 121 mg/dL
== END 2024-06-10 15:44 | disposition home or self-care (01) ==
PROVIDERS: PCP Family Medicine Adolescent Medicine; Visit Provider Internal Medicine
DX: I10 Essential (primary) hypertension (principal)
CPT/HCPCS: 36415; 80053; 80061; 85025; 85055